=== PATIENT | male | born 1965 | race African-American/Black ===

== ENCOUNTER 2018-07-09 12:09 | Inpatient (IN) ==
--- NOTE | 2018-07-09 14:07 | Diag Imaging Result Doc PS360 ---
EXAM: CHEST-2 VIEWS HISTORY: sob TECHNIQUE: Chest two views COMPARISON: 08/06/2013 FINDINGS: The heart remains markedly enlarged. Central vascular distention. Poor inspiratory effort. No consolidation. Trace right pleural fluid versus pleural thickening. IMPRESSION: Marked cardiomegaly Electronically signed by Cristhian García 07/09/2018 2:05 PM
[2018-07-09] MEDS ORDERED: DUONEB (A & A) INH ONE (14:39)
--- NOTE | 2018-07-09 14:44 | PROVIDER DOCUMENTATION ---
HPI-Respiratory General - General Chief Complaint: Shortness of Breath Stated Complaint: SOB Time Seen by Provider: 07/09/18 14:29 Source: patient, family Allergies/Adverse Reactions: Patient Allergies Allergy/AdvReac Type Severity Reaction Status Date / Time No Known Allergies Allergy Verified 07/09/18 15:00 Home Medications: Home Medication List Medication Instructions Recorded Confirmed Last Taken Type Allopurinol [Zyloprim] 300 mg PO QAM 08/02/15 07/09/18 07/09/18 History Carvedilol 25 mg PO BID 08/02/15 07/09/18 07/09/18 History Digoxin 125 mcg PO QAM 08/02/15 07/09/18 07/09/18 History Simvastatin 20 mg PO QPM 08/02/15 07/09/18 1 Day Ago History ~07/08/18 Warfarin Sodium [Jantoven] 5 mg PO HS 08/02/15 07/09/18 1 Day Ago History ~07/08/18 Furosemide [Lasix] 30 mg PO DAILY 07/09/18 07/09/18 07/09/18 History - History of Present Illness-Resp Nature of Presenting Problem: Pt is 53 yo male, states dyspnea x 2 weeks, getting worse. Denies cp. Denies fever. States he has h/o CHF, and chronic foot wound, with increased swelling in bilat lower ext as well. States he has appt with his doctor, Dr. Martínez on this week. Onset/Duration: reports: other (2 weeks) Timing: reports: still present Modifying Factors: improves with: exertion Associated Symptoms: denies: fever/chills Review of Systems - Adult - REVIEW OF SYSTEMS - ADULT Constitutional: denies: fever Cardiovascular: reports: edema. denies: chest pain Respiratory: reports: dyspnea on exertion, shortness of breath Integumentary: denies: rash All Other Systems: Reviewed and Negative Past History - Adult - PAST MEDICAL HISTORY-ADULT Review of Records: reports: Nursing Assessment Review, Medications Reviewed Major Childhood Illnesses: reports: denies history Physical Exam-General - PHYSICAL EXAM-ADULT Initial Vital Signs Reviewed: Yes - CONSTITUTIONAL General Appearance: alert, mild distress (due to dyspnea) - EYES Eyes: PERRL/EOMI, pink conjunctivae - HEAD, EARS, NOSE, MOUTH & THROAT HENMT: normocephalic/atraumatic, moist mucous membranes - NECK Neck: supple - RESPIRATORY Respiratory: chest non-tender, decreased breath sounds (bilat) - CARDIOVASCULAR Cardiovascular: normal peripheral pulses, regular rate, rhythm - MUSCULOSKELETAL Extremity: swelling (2+ bilat lower ext, chronic L foot wound, just left wound center, dressing intact) - SKIN Integumentary: normal color, normal turgor - PSYCHIATRIC Psych/Mental Status: normal mood/affect, normal thought content, normal thought process, oriented x 3 Progress - PLAN OF CARE/RESULTS Progress/Plan/Lab Results: Vital Signs - 8 hr 07/09/18 12:17 07/09/18 15:23 07/09/18 15:33 Temperature 98.6 F Pulse Rate 59 L 59 L 55 L Respiratory Rate 18 18 20 Blood Pressure 126/87 130/92 O2 Sat by Pulse Oximetry 92 L 96 94 L 07/09/18 16:39 Temperature Pulse Rate 48 L Respiratory Rate 19 Blood Pressure 120/93 O2 Sat by Pulse Oximetry 97 Laboratory Results - last 24 hr 07/09/18 07/09/18 07/09/18 14:37 15:00 15:28 WBC 5.88 RBC 5.53 Hgb 13.3 L Hct 40.2 L MCV 72.7 L MCH 24.1 L MCHC 33.1 RDW Std Deviation 19.5 H Plt Count 269 MPV 11.8 H Immature Gran % (Auto) 0.3 Neut % (Auto) 63.3 Lymph % (Auto) 22.3 Coles % (Auto) 13.3 H Eos % (Auto) 0.3 Baso % (Auto) 0.5 Immature Gran # (Auto) 0.02 Neut # (Auto) 3.72 Lymph # (Auto) 1.31 Coles # (Auto) 0.78 H Eos # (Auto) 0.02 Baso # (Auto) 0.03 PT 13.5 INR 0.98 Sodium Potassium Chloride Carbon Dioxide Anion Gap BUN Creatinine Estimated GFR/1.73 m2 BUN/Creatinine Ratio Glucose Calculated Osmolality Calcium Total Bilirubin AST ALT Alkaline Phosphatase Coo-X-Hbhokouomyt Pept Total Protein Albumin Globulin Albumin/Globulin Ratio Urine Source CLEAN CATCH Urine Color YELLOW Urine Clarity CLEAR Urine pH 5.0 Ur Specific [place] 1.015 Urine Protein 2+(100 mg/dL) A Urine Ketones TRACE Urine Blood NEGATIVE Urine Nitrite NEGATIVE Urine Bilirubin NEGATIVE Urine Urobilinogen 4 Urine Microscopic RBC <10 Urine WBC TRACE A Urine Microscopic WBC <10 Ur Epithelial Cells <10 Urine Crystals NONE SEEN Small Round Cells TRANSITIONAL PRESENT Urine Bacteria NEGATIVE Urine Casts NONE SEEN Urine Yeast NONE SEEN Urine Glucose NEGATIVE 07/09/18 07/09/18 15:28 15:28 WBC RBC Hgb Hct MCV MCH MCHC RDW Std Deviation Plt Count MPV Immature Gran % (Auto) Neut % (Auto) Lymph % (Auto) Col[place] % (Auto) Eos % (Auto) Baso % (Auto) Immature Gran # (Auto) Neut # (Auto) Lymph # (Auto) Coles # (Auto) Eos # (Auto) Baso # (Auto) PT INR Sodium 134 L Potassium 4.0 Chloride 105 Carbon Dioxide 19 L Anion Gap 10 BUN 28 H Creatinine 0.8 Estimated GFR/1.73 m2 > 60 BUN/Creatinine Ratio 35 Glucose 118 H Calculated Osmolality 275 Calcium 7.9 L Total Bilirubin 0.30 AST 19 ALT 18 Alkaline Phosphatase 81 Cju-L-Vwwtnxvpydi Pept 744 H Total Protein 5.9 L Albumin 3.3 L Globulin 3.0 Albumin/Globulin Ratio 1.0 Urine Source Urine Color Urine Clarity Urine pH Ur Specific [place] Urine Protein Urine Ketones Urine Blood Urine Nitrite Urine Bilirubin Urine Urobilinogen Urine Microscopic RBC Urine WBC Urine Microscopic WBC Ur Epithelial Cells Urine Crystals Small Round Cells Urine Bacteria Urine Casts Urine Yeast Urine Glucose Orders Category Date Time Status Cardiac Monitoring DIRECTED Care 07/09/18 14:31 Active Oxygen Therapy- ED Nursing DIRECTED Care 07/09/18 14:31 Active CHEST-2 VIEWS [RAD] Stat Exams 07/09/18 13:52 Completed CTA [CT ANGIOGRM PULMONARY ARTERIES] [CT] Stat Exams 07/09/18 14:38 Completed CBC WITH ELECTRONIC DIFF [HEME] Stat Lab 07/09/18 15:00 Completed COMPREHENSIVE METABOLIC PANEL [CHEM] Stat Lab 07/09/18 15:28 Completed PRO B-NATRIURETIC PEPTIDE Stat Lab 07/09/18 15:28 Completed PROTIME WITH INR [COAG] Stat Lab 07/09/18 15:[address] W/POSS RFLX CULT [URINALYSIS] Stat Lab 07/09/18 14:37 Completed URINE CULTURE [RM] Routine Lab 07/09/18 15:04 Ordered Albuterol 2.5MG/Ipratrop 0.5MG [Duoneb (A & A)] Med 07/09/18 14:39 Discontinued 3 ml INH NOW ONE Furosemide [Lasix] Med 07/09/18 18:19 Discontinued 60 mg IV NOW ONE Aerosol Treatments Routine Oth 07/09/18 14:39 Completed Aerosol Treatments Stat Oth 07/09/18 14:39 Completed CP/SOB/Palp >45 yrs of Age Stat Oth 07/09/18 14:28 Ordered EKG [EKG] Stat Ther 07/09/18 14:31 Draft Result Diagrams: 07/09/18 15:00 07/09/18 15:28 - REASSESSMENT Reassessment #1 Time Reassessed: 17:29 (explained results and need for admission to pt and family member) Reassessment #2 Time Reassessed: 18:33 (Dr Alas in ER, discussed pt with him. Dr Alas at bedside to assess pt) - CT/MRI 1 CT Study: Angiogram Impression: Abnormal (The heart remains markedly enlarged. No left pleural effusion. Tiny right pleural effusion. There is vascular distention. Suboptimal opacification of the pulmonary arteries, but no large filling defects. There are small mediastinal and hilar lymph nodes. No consolidation. No bronchiectasis. Limited images through the upper abdomen reveal marked distention to the inferior vena cava as well as a small amount of ascites. IMPRESSION: Marked cardiomegaly with pulmonary edema. No pulmonary emboli. This exam was performed using automated exposure control, adjustment of mA or kV according to patient size, and/or use of iterative reconstruction technique. Electronically signed by Cristhian García 07/09/2018 5:10 PM) - CONSULTS/PCP/HOSPITALIST Notification #1 *Consult/PCP/Hospitalist*: hospitalistDr Alas Time Discussed: 18:33 Consult Disposition: Admit - CHANGE OF SHIFT REPORT (ED Provider) Report Given and Care Transferred to:: [id number]--care transferred to Lakisha Ascencio NP. Time of Transfer: 16:11 Departure - Departure Date of Disposition Decision: 07/09/18 Time of Disposition Decision: 18:56 DIAGNOSIS: SOB (shortness of breath) Pulmonary edema Qualifiers: Chronicity: acute Qualified Code(s): J81.0 - Acute pulmonary edema Disposition: ADMITTED INPATIENT 09 Certified Medical Emergency: Emergent Condition: Fair Referrals and Follow-Ups: Elmer Martínez MD [Primary Care Provider] - - Critical Care Note This patient required my direct & personal management of CC.: No Attestation - Physician/ PABLO Attestation Patient care was provided by Advanced Practice Provider:: Yes Advanced Practice Provider:: Lakisha Ascencio Advanced Practice Provider documentation review:: The Mid-level provider documentation, treatment plan and medical decision making was reviewed by the physician who agrees with all treatment and medical decision making by the MLP. The physician spent face to face time with patient:: No Advanced Practice Provider documentation review:: Supervising physician onsite and consulted in the evaluation and care of this patient. The physician did not have a face to face encounter with the patient.
[2018-07-09 15:02] LABS: BILIRUBIN URINE NEGATIVE (NEGATIVE); BLOOD URINE NEGATIVE (NEGATIVE); CLARITY CLEAR (CLEAR); COLOR YELLOW; GLUCOSE URINE NEGATIVE (NEGATIVE); KETONE URINE TRACE mg/dL (NEGATIVE); LEUKOCYTES URINE TRACE (NEGATIVE); NITRITE URINE NEGATIVE (NEGATIVE); PROTEIN URINE 2+(100 mg/dL) mg/dL (NEGATIVE); SP GRAVITY URINE 1.015; URINE SOURCE CLEAN CATCH; UROBILINOGEN URINE 4 mg/dL
[2018-07-09 15:04] LABS: URINE BACTERIA NEGATIVE /HFP; URINE CAST NONE SEEN /LPF; URINE CRYSTAL NONE SEEN /HPF; URINE EPITHELIAL CELLS <10 /HPF (<10); URINE RBC <10 /HPF (<10); URINE SMALL ROUND CELLS TRANSITIONAL PRESENT; URINE WBC <10 /HPF (<10); URINE YEAST NONE SEEN /HPF
[2018-07-09 15:10] LABS: BASO# 0.03 X1000 (0.0-0.2); BASO% 0.5 % (0.0-0.8); EOS# 0.02 X1000 (0.0-0.7); EOS% 0.3 % (0.0-10.0); HEMATOCRIT 40.2 % (42.0-52.0); HEMOGLOBIN 13.3 g/dL (14.0-18.0); IMM GRAN# 0.02 X1000 (0.0-0.04); IMM GRAN% 0.3 % (0.0-0.5); LYMPH# 1.31 X1000 (1.2-3.4); LYMPH% 22.3 % (20.5-51.1); MCH 24.1 PG (27-31); MCHC 33.1 g/dL (33-37); MCV 72.7 FL (81-99); MONO# 0.78 X1000 (0.11-0.59); MONO% 13.3 % (1.7-9.3); MPV 11.8 FL (7.4-10.4); NEUT# 3.72 X1000 (1.4-6.5); NEUT% 63.3 % (42.2-75.2); PLT 269 X1000 (130-400); RBC 5.53 XMIL (4.7-6.1); RDW 19.5 % (11.5-14.5); WBC 5.88 X1000 (4.8-10.8)
[2018-07-09 16:03] LABS: INR 0.98; PROTIME 13.5 Seconds (11.0-16.0)
[2018-07-09 16:17] LABS: AGAP 10; ALBUMIN 3.3 g/dL (3.5-5.0); ALKALINE PHOSPHATASE 81 U/L (32-122); BUN 28 mg/dL (8-22); CALCIUM 7.9 mg/dL (8.8-10.2); CHLORIDE 105 mmol/L (98-107); COSMO 275; CREATININE 0.8 mg/dL (0.7-1.2); ESTIMATED GFR > 60; GLUCOSE 118 mg/dL (70-104); GOT 19 U/L (10-34); GPT 18 U/L (10-44); SODIUM 134 mmol/L (136-145); TCO2 19 mmol/L (25-35); TOTAL PROTEIN 5.9 g/dL (6.3-8.3)
--- NOTE | 2018-07-09 17:12 | Diag Imaging Result Doc PS360 ---
EXAM: CT ANGIOGRM PULMONARY ARTERIES HISTORY: sob TECHNIQUE: CT chest with intravenous contrast. Pulmonary two protocol with MIP images. COMPARISON: None. FINDINGS: The heart remains markedly enlarged. No left pleural effusion. Tiny right pleural effusion. There is vascular distention. Suboptimal opacification of the pulmonary arteries, but no large filling defects. There are small mediastinal and hilar lymph nodes. No consolidation. No bronchiectasis. Limited images through the upper abdomen reveal marked distention to the inferior vena cava as well as a small amount of ascites. IMPRESSION: Marked cardiomegaly with pulmonary edema. No pulmonary emboli. This exam was performed using automated exposure control, adjustment of mA or kV according to patient size, and/or use of iterative reconstruction technique. Electronically signed by Cristhian García 07/09/2018 5:10 PM
--- NOTE | 2018-07-09 17:19 | EKG Report ---
Test Performed on : 07/09/2018 3:22:07 PM Test Reason : sob Blood Pressure : / mmHG Vent. Rate : 056 BPM Atrial Rate : 061 BPM P-R Int : 000 ms QRS Dur : 090 ms QT Int : 428 ms P-R-T Axes : 000 -52 133 degrees QTc Int : 413 ms Atrial fibrillation. with slow ventricular response. with a competing junctional pacemaker. with merritt ature ventricular or aberrantly conducted complexes. Left axis deviation ST & T wave abnormality, consider lateral ischemia Abnormal ECG When compared with ECG of 10-FEB-2014 11:59, QRS duration has decreased T wave inversion no longer evident in Inferior leads T wave inversion less evident in Lateral leads Unconfirmed Result
--- NOTE | 2018-07-09 18:02 | ED EKG INTERP ---
This chart was entered by Mikaela Spann Scribe, acting as scribe for Adela Dickey MD. EKG Interpretation - EKG Time of EKG reading by physician:: 15:22 EKG Read and Signed by:: Adela Dickey EKG Interpretation (*Must complete 3 of following elements*): Abnormal (rhythm - atrial fibrillation with slow ventricular repsonse with a competing junctional pacemaker with premature ventricular or aberrantly conducted complexes.) Rate: 56 Comments: left axis deviation; ST & T wave abnormality, consider lateral ischemia Attestation - Physician/ PABLO Attestation Patient care was provided by Advanced Practice Provider:: Yes Advanced Practice Provider:: Mariaa Melo Advanced Practice Provider documentation review:: The Mid-level provider documentation, treatment plan and medical decision making was reviewed by the physician who agrees with all treatment and medical decision making by the MLP. The physician spent face to face time with patient:: No Advanced Practice Provider documentation review:: Supervising physician onsite and consulted in the evaluation and care of this patient. The physician did not have a face to face encounter with the patient. This chart was documented by the indicated scribe, (Mikaela Spann Scribe) and accurately reflects the services I performed and decisions made by me, Adela Dickey MD, as attested by the provider's signature.
[2018-07-09] MEDS ORDERED: LASIX IV ONE (18:19)
[2018-07-09] MEDS: LOVENOX SUBQ SCH (19:15)
[2018-07-09] MEDS ORDERED: ZOFRAN IV PRN (19:16)
[2018-07-09] MEDS ORDERED: TYLENOL PO PRN (19:16)
[2018-07-09] MEDS: LASIX IV SCH (19:22)
[2018-07-09] MEDS ORDERED: COUMADIN PO SCH (21:00)
[2018-07-09] MEDS: COREG PO SCH (21:49)
[2018-07-09] MEDS: ZOCOR PO SCH (21:49)
[2018-07-10 00:49] LABS: ALBUMIN 3.7 g/dL (3.5-5.0); CALCIUM 9.4 mg/dL (8.8-10.2); CREATININE 1.5 mg/dL (0.7-1.2); POTASSIUM 4.6 mmol/L (3.5-5.1); TOTAL BILIRUBIN 1.3 mg/dL (0.20-1.00); TOTAL PROTEIN 7.3 g/dL (6.3-8.3)
--- NOTE | 2018-07-10 01:01 | EKG Report ---
Test Performed on : 07/09/2018 11:54:41 PM Test Reason : STAT Blood Pressure : / mmHG Vent. Rate : 052 BPM Atrial Rate : 326 BPM P-R Int : 000 ms QRS Dur : 104 ms QT Int : 428 ms P-R-T Axes : 000 -61 129 degrees QTc Int : 398 ms Atrial fibrillation. with slow ventricular response. with premature ventricular or aberrantly conduct ed complexes. Left axis deviation ST & T wave abnormality, consider lateral ischemia Abnormal ECG When compared with ECG of 09-JUL-2018 15:22, (Unconfirmed) No significant change was found Confirmed by Frankie Patterson MD ([id number]) on 08/04/2018 9:57:37 AM
--- NOTE | 2018-07-10 03:56 | HISTORY AND PHYSICAL ---
CHIEF COMPLAINT: Shortness of breath. HISTORY OF PRESENT ILLNESS: This is a 53-year-old male who presented to the emergency department with shortness of breath, coughing, and congestion. He denies any chest pains, fevers, or chills. States he has a history of CHF. He has a chronic foot wound for which he was actually seen [facility]. States he has been sick for several weeks but since he was going to the [facility], he decided to come on to the ER. ALLERGIES: No known drug allergies. MEDICATIONS: Allopurinol 300, carvedilol 25 twice a day, digoxin 125, simvastatin 20, Coumadin 5, Lasix 30. REVIEW OF SYSTEMS: The patient unfortunately is an extremely poor historian. He does not recall whether he has ever been told he has congestive heart failure, atrial fibrillation, or coronary artery disease, or any other question that I could ask. He denies any current chest pains. Denies any fevers or chills. Denies any GI or issues. PAST MEDICAL HISTORY: He has a chronic foot wound, he has congestive heart failure, history of atrial fibrillation, high cholesterol. It appears that he may have a history of BPH as well. FAMILY HISTORY: Noncontributory. SOCIAL HISTORY: Patient lives at home. He does not smoke anymore. Does not drink. PHYSICAL EXAMINATION: VITAL SIGNS: Temperature 98, pulse 59, respiratory rate 18, BP 126/87, saturation of 92% on room air. GENERAL: The patient is awake and alert. He is currently in no respiratory distress. He is lying in the bed. HEENT: Normocephalic. NECK: Supple. CARDIOVASCULAR: Regular rate. CHEST: Positive rhonchi, crackles in the bases. No wheezing. ABDOMEN: Soft and nondistended. EXTREMITIES: Moves all extremities. He has 2+ edema in the bilateral lower extremities. His right foot is currently bandaged, clean, dry, and intact. ASSESSMENT: 1. Hyponatremia. 2. Congestive heart failure with exacerbation. 3. Atrial fibrillation, currently rate controlled. 4. High cholesterol. PLAN: We will continue the patient in the hospital. Continues his home medications. Follow his INRs. Place him on Lasix 40 IV twice daily. We will get an echocardiogram in the a.m. and we will follow. cc: Martínez Marcial MD
[2018-07-10] MEDS ORDERED: NORCO-7.5 PO PRN (06:36)
[2018-07-10 07:17] LABS: HEMOGLOBIN 12.3 g/dL (14.0-18.0); MCH 23.8 PG (27-31); MCHC 32.4 g/dL (33-37); MCV 73.5 FL (81-99); MPV 11.1 FL (7.4-10.4); RBC 5.17 XMIL (4.7-6.1); RDW 19.1 % (11.5-14.5); WBC 5.36 X1000 (4.8-10.8)
[2018-07-10 07:47] LABS: ALBUMIN 3.5 g/dL (3.5-5.0); CALCIUM 9.4 mg/dL (8.8-10.2); CREATININE 1.4 mg/dL (0.7-1.2); MAGNESIUM 2.1 mg/dL (1.5-2.7); POTASSIUM 4.6 mmol/L (3.5-5.1); TOTAL BILIRUBIN 1.2 mg/dL (0.20-1.00); TOTAL PROTEIN 6.9 g/dL (6.3-8.3)
[2018-07-10] MEDS ORDERED: LANOXIN PO SCH (09:00)
[2018-07-10] MEDS ORDERED: ZYLOPRIM PO SCH (09:00)
[2018-07-10] MEDS ORDERED: FLOMAX PO SCH (09:00)
[2018-07-10 09:09] LABS: INR 3.18; PROTIME 34.1 Seconds (11.0-16.0)
[2018-07-10] MEDS: COREG PO SCH (10:02)
[2018-07-10] MEDS: LASIX IV SCH ×2 (10:03→20:20)
[2018-07-10] MEDS ORDERED: ZAROXOLYN PO ONE (18:45)
--- NOTE | 2018-07-10 19:58 | ECHO REPORT ---
ORDER DATE: 07/10/2018 INDICATION: CHF, dyspnea, atrial fibrillation. M-MODE MEASUREMENTS: Left ventricle end diastole: 5.4. Left ventricle end systole: 4.6. Posterior wall: 0.8. Interventricular septum: 1.2. Left atrium: 4.0. Aortic root: 4.0. SUMMARY OF 2-DIMENSIONAL IMAGIN. The left ventricle is probably mildly enlarged. The global ejection fraction of the left ventricle is probably on the order of 30% to 35%. There is abnormal motion of the septum due to a markedly enlarged right ventricle with pulmonary hypertension. There is flattening of the septum. 2. The right ventricle is significantly enlarged, and it shows moderately impaired systolic function. The tricuspid valve shows a moderate to severe degree of regurgitation. The right atrium is massively dilated. The absolute volume of the right atrium is about 680 mL. 3. The inferior vena cava is markedly dilated, measuring up to 5 cm in cross- sectional diameter. 4. There is evidence of ascites. 5. Pulmonary systolic pressure is greater than 100 mmHg. It is hard to really estimate. 6. The aortic valve is bicuspid. It shows no regurgitation. There is no stenosis. 7. The pulmonic valve shows some moderate degree of regurgitation. Pulmonary diastolic pressure is probably on the order of 31 mmHg. 8. The mitral valve shows a mild to moderate degree of regurgitation. 9. The patient is in atrial fibrillation. 10.Pulsed wave Doppler of mitral inflow shows a single filling wave. 11.Diastolic function cannot be estimated in this case. 12.There is no pericardial effusion. A pleural effusion and ascites appear to be present. SUMMARY: This study shows: 1. Markedly dilated right-sided chambers with massive enlargement of the right atrium, significant enlargement of the right ventricle, severe pulmonary hypertension greater than 100 mmHg systolic and greater than 30 mmHg diastolic. 2. Bicuspid aortic valve without stenosis or regurgitation. 3. Impaired systolic function of the left ventricle. Ejection fraction of 30% to 35% with abnormal motion of the septum due to right ventricular pressure overload. 4. No evidence of masses. No thrombus. Clinical correlation recommended. cc: MD Whitley Ribeiro CRNP MTDD
[2018-07-10] MEDS: ZOCOR PO SCH (20:19)
[2018-07-10] MEDS: LOVENOX SUBQ SCH (20:22)
[2018-07-10] MEDS ORDERED: COREG PO SCH (21:00)
[2018-07-10] MEDS ORDERED: TYLENOL PO PRN (21:45)
[2018-07-10] MEDS ORDERED: ZOFRAN IV PRN (21:46)
--- NOTE | 2018-07-11 00:44 | CONSULTATION ---
DATE OF CONSULTATION: 07/10/2018 IMPRESSION: 1. Acute on chronic systolic heart failure, biventricular with significant right-sided congestive heart failure manifest. 2. Severe nonischemic cardiomyopathy. 3. Obstructive sleep apnea. Patient not using CPAP. 4. Longstanding hypertension. 5. Hyperlipidemia. 6. Atrial fibrillation, chronic. RECOMMENDATIONS: 1. Agree with diuresis. Increase Lasix to 60 mg IV q.12. Give single dose of metolazone this evening to see of diuresis can be initiated. 2. Given tendency for bradycardia, reduce carvedilol. 3. As patient improves and if blood pressure allows and renal function allows, consider addition of angiotensin receptor blocking agent versus hydralazine/isosorbide. HISTORY: This 53-year-old male with past history of severe nonischemic cardiomyopathy, longstanding hypertension, atrial fibrillation, hyperlipidemia and gout was admitted to emergency room for further management of acute on chronic systolic heart failure. He relates a 1 month history of progressive increase in dyspnea symptoms as well as some swelling. Symptoms have progressively worsened over the last several days prompting him to come in for evaluation. He denies any chest pain. He reports compliance with sodium restriction. He has been started on intravenous Lasix q.12 hours but has not diuresed very much at this point. He does report that his oral Lasix seemed to have less effect on him of late. PAST MEDICAL HISTORY: 1. Severe nonischemic cardiomyopathy with left ejection fraction reported less than 20%. 2. Longstanding hypertension which has been somewhat difficult to control in the past. 3. Chronic atrial fibrillation. 4. Hyperlipidemia. 5. Gout. 6. Tendency for lower extremity edema and nonhealing ulcers. Patient relates that this has kept him from getting a defibrillator. It is desired that his wounds heal before he can have implantable defibrillator. ALLERGIES: He has no known drug allergies. MEDICATIONS PRIOR TO ADMISSION: As listed. SOCIAL HISTORY: The patient does not smoke. He drinks very infrequent alcoholic beverage. FAMILY HISTORY: Positive for hypertension and congestive heart failure. Negative for premature coronary disease. REVIEW OF SYSTEMS: Pulmonary: Noteworthy for progressive dyspnea. Gastrointestinal: Negative. Constitutional: Negative. Remainder of review of systems negative/noncontributory with 14 total systems reviewed. PHYSICAL EXAMINATION: General: This is a pleasant, middle-aged -[place] male in no distress, on supplemental oxygen per nasal cannula. Vital signs: Blood pressure 112/87, heart rate 54 with ECG monitor showing atrial fibrillation. Oxygen saturation 97%. HEENT: Extraocular movements intact. Mucous membranes were moist. Neck: Supple with prominent jugular venous distention suggesting significantly elevated central venous pressure. Chest: Auscultation of chest reveals a few inspiratory crackles in the bases bilaterally. Cardiac: Exam reveals an irregular rate and rhythm with a grade 2/6 holosystolic murmur at the left ventricular apex. Gallop could not be appreciated. Abdomen: Somewhat distended. Bowel sounds audible. Extremities: Demonstrate mild pretibial edema. Neurologic: Exam reveals him to be alert and fully oriented. Speech is fluent. He moves all 4 extremities equally well. Skin: Warm and dry. Psychiatric: Exam reveals mood to be appropriate. EKG: Twelve-lead EKG demonstrates atrial fibrillation with slow ventricular rate response and occasional premature ventricular or aberrantly conducted complex, left axis deviation, and nonspecific ST and T-wave abnormality. LABORATORY DATA: Includes a white blood cell count of 5.36, hematocrit 38.0, hemoglobin 12.3, MCV 73.5. Initial INR 0.98 with a ProTime of 13.5. Followup INR after 1 dose of Coumadin 5 mg 3.18 with a ProTime of 34.1. Sodium 142, potassium 4.6, chloride 100, carbon dioxide 29, BUN 32, creatinine 1.4, magnesium 2.1. Total bilirubin 1.2. Troponin 0.029. Pro B-natriuretic peptide level 744. Albumin 3.5. TSH 4.98. Chest x-ray demonstrates prominent cardiomegaly. cc: Magnus Lopez MD
--- NOTE | 2018-07-11 00:48 | PROGRESS NOTE ---
DATE: 07/10/2018 SUBJECTIVE: Patient this morning has no new complaints. States he does not feel well. States he is still short of breath and fatigued. The nurses note that he had several episodes of dysrhythmias yesterday including 15 beats or so of the ventricular tachycardia. PHYSICAL EXAMINATION: Vital Signs: Temperature 97.4 degrees, pulse 61, respiratory 22, BP 126/88. General: Patient is awake, alert. He is currently in no respiratory distress. HEENT: Normocephalic. Neck: Supple. CARDIOVASCULAR: Regular rate. Chest: Positive rhonchi. Positive crackles. No current wheezing. Good air movement. Abdomen: Soft, nondistended, nontender. Extremities: Moves all extremities. He has 2+ edema in his lower extremities. His right foot is currently bandaged. DIAGNOSTIC STUDIES: Echo demonstrates an ejection fraction of 30 to 35 percent with abnormal motion and markedly dilated right-sided chambers with massive enlargement of the right atrium. PLAN: We have consulted Cardiology. We will attempt to transfer him to [facility] for close followup. cc: Martínez Marcial MD
[2018-07-11 05:16] LABS: HEMATOCRIT 38.7 % (42.0-52.0); HEMOGLOBIN 12.5 g/dL (14.0-18.0); MCHC 32.3 g/dL (33-37); MCV 74.3 FL (81-99); RBC 5.21 XMIL (4.7-6.1); WBC 4.87 X1000 (4.8-10.8)
[2018-07-11 05:41] LABS: AGAP 12; BUN 34 mg/dL (8-22); CALCIUM 9.4 mg/dL (8.8-10.2); CHLORIDE 99 mmol/L (98-107); COSMO 287; CREATININE 1.3 mg/dL (0.7-1.2); ESTIMATED GFR > 60; GLUCOSE 96 mg/dL (70-104); POTASSIUM 4.5 mmol/L (3.5-5.1); SODIUM 140 mmol/L (136-145); TCO2 29 mmol/L (25-35)
[2018-07-11 08:21] LABS: INR 3.33; PROTIME 36.1 Seconds (11.0-16.0)
[2018-07-11] MEDS: LASIX IV SCH ×2 (08:54→16:04)
--- NOTE | 2018-07-11 12:51 | Diag Imaging Result Doc PS360 ---
EXAM: US ABDOMEN-COMPLETE 07/11/2018 HISTORY: ASCITES, ABD DISTENTION TECHNIQUE: Abdominal ultrasound COMMENT: There is a small amount of free fluid around the liver. The inferior vena cava is distended. The visualized portion of the aorta is within normal limits. The head of the pancreas is unremarkable in appearance remainder is obscured. There is antegrade flow in the portal vein. The gallbladder is somewhat contracted and thickened in appearance without evidence of stones. There is no sonographic Hickman sign. The common bile duct is not distended measuring less than 6 mm. The kidneys are without evidence of hydronephrosis or mass. The spleen is not enlarged. IMPRESSION: Ascites. Dilatation of the inferior vena cava and hepatic veins. This may be due to passive congestion due to heart failure. The possibility of chronic acalculous cholecystitis cannot be excluded. Electronically signed by Darien Purvis 07/11/2018 12:49 PM
[2018-07-11] MEDS: COREG PO SCH ×2 (13:41→20:20)
[2018-07-11] MEDS: LANOXIN PO SCH (13:41)
[2018-07-11] MEDS: FLOMAX PO SCH (13:44)
[2018-07-11] MEDS: ZYLOPRIM PO SCH (13:44)
--- NOTE | 2018-07-11 14:31 | PROGRESS NOTE ---
DATE: 07/11/2018 INTERVAL HISTORY: Patient still with dyspnea with minimal exertion. Little improved from previous. Lasix increased last night but still with less urine output than we would prefer. No new complaints. No acute events overnight. REVIEW OF SYSTEMS: A 12 point review of systems negative except as per interval history. LABS: White count 4.8, hemoglobin 12.5, hematocrit 38.7, platelets 217,000. INR 3.3. Sodium 140, potassium 4.5, BUN 34, creatinine 1.3. IMAGING: Abdominal ultrasound 07/11/2018 showing distended inferior vena cava and hepatic veins. Normal common bile duct. Ascites, favored to represent passive congestion due to congestive heart failure. VITAL SIGNS: T-max 98.2, pulse 64, respirations 19, blood pressure 129/71, O2 saturation 100% on 3 L by nasal cannula. PHYSICAL EXAMINATION: General: No acute distress. Vital signs: As above. HEENT: Normocephalic, atraumatic. Moist mucous membranes. No cervical adenopathy. Cardiovascular: Irregular rhythm with normal rate. No rubs or gallops. Abdomen: Somewhat distended but nontender. Bowel sounds positive. Extremities: Peripheral pulses decreased but intact. Left lower extremity heavily bandaged. Bandage clean, dry, and intact. There is 2+ pitting edema in both lower extremities. Neurologic: Cranial nerves 2-12 grossly intact. No focal motor or sensory deficits. Psychiatric: Normal mood and affect. Awake, alert, and oriented x3. Skin: No new rashes or lesions identified. ASSESSMENT AND PLAN: 1. Acute on chronic systolic congestive heart failure. Initially placed on Lasix 40 b.i.d. but had little diuresis with this. Lasix increased to 60 last night. Monitoring for response but may have to increase further as he appears to still be not having as much urine output as we would prefer. Cardiology is following. They have decreased his Coreg given some mild bradycardia earlier and added a single dose of metolazone to attempt to improve diuresis. Continue to monitor closely. 2. Atrial fibrillation. The patient remains rate controlled. On Coumadin for anticoagulation but held last night due to repaid increase in INR. Slightly higher today, from 3.18 to 3.33, so we will again hold warfarin and if it trends down tomorrow will likely restart at a lower dose. Currently 5, so may start 2 mg tomorrow. 3. Hypertension. Good control currently on home Coreg. Continue to monitor. 4. Benign prostatic hypertrophy. The patient with some mild urinary retention symptoms. Started on Flomax. Will monitor. 5. Likely chronic kidney disease 3. Patient with creatinine which is likely at or near baseline. At least CKD 3, may be in to CKD 4. Continue to monitor kidney function in the setting of aggressive diuresis. 6. Hyperlipidemia. Continue statin. 7. Gout. Continue home allopurinol. Monitor kidney function as dose may have to be adjusted. 8. Deep vein thrombosis prophylaxis. Coumadin.
[2018-07-11] MEDS: NORCO-7.5 PO PRN (15:07)
[2018-07-11] MEDS ORDERED: ZAROXOLYN PO ONE (15:47)
--- NOTE | 2018-07-11 19:50 | PROGRESS NOTE ---
DATE: 07/11/2018 SUBJECTIVE: Patient continues without shortness of breath or chest discomfort on supplemental oxygen per nasal cannula. He has diuresed a limited amount. OBJECTIVE: Vital Signs: Blood pressure 129/71, heart rate 64 and irregular, oxygen saturation 100% on nasal cannula oxygen at 3 L/minute. Neck: Jugular venous distention is significant consistent with elevated central venous pressure. Chest: Clear to auscultation bilaterally. Cardiac: Reveals an irregular rate and rhythm without appreciable murmur or gallop. Extremities: Demonstrate mild pretibial edema. LABORATORY DATA: Includes a white blood cell count of 4.87, hematocrit 38.7, hemoglobin 12.5, platelet count 217,000. Pro time 36.1, INR 3.33. Sodium 140, potassium 4.5, chloride 99, carbon dioxide 29, BUN 34, creatinine 1.3, glucose 96. IMPRESSION: 1. Acute on chronic systolic heart failure, biventricular with significant right-sided congestive heart failure. 2. Severe nonischemic cardiomyopathy. 3. Obstructive sleep apnea. Patient not using CPAP. 4. Longstanding hypertension. 5. Hyperlipidemia. 6. Chronic atrial fibrillation. RECOMMENDATIONS: 1. Continue IV Lasix 60 mg IV q.12. 2. Give additional dose of metolazone 5 mg p.o. today. 3. If patient diureses, consider addition of angiotensin receptor blocking agent. cc: Magnus Lopez MD
[2018-07-11] MEDS: ZOCOR PO SCH (20:20)
[2018-07-11] MEDS ORDERED: LOVENOX SUBQ SCH (21:00)
[2018-07-12] MEDS: LASIX IV SCH ×2 (03:30→16:10)
[2018-07-12 05:45] LABS: INR 3.08
[2018-07-12] MEDS: ZYLOPRIM PO SCH (08:09)
[2018-07-12] MEDS: LANOXIN PO SCH (08:09)
[2018-07-12] MEDS: FLOMAX PO SCH (08:09)
[2018-07-12] MEDS: COREG PO SCH ×2 (08:09→20:34)
[2018-07-12 08:38] LABS: BASO# 0.02 X1000 (0.0-0.2); BASO% 0.4 % (0.0-0.8); EOS# 0.04 X1000 (0.0-0.7); EOS% 0.9 % (0.0-10.0); HEMATOCRIT 39.7 % (42.0-52.0); HEMOGLOBIN 12.9 g/dL (14.0-18.0); LYMPH# 0.99 X1000 (1.2-3.4); LYMPH% 21.3 % (20.5-51.1); MCHC 32.5 g/dL (33-37); MCV 73.9 FL (81-99); MONO# 0.53 X1000 (0.11-0.59); MONO% 11.4 % (1.7-9.3); MPV 10.6 FL (7.4-10.4); NEUT# 3.07 X1000 (1.4-6.5); PLT 229 X1000 (130-400); RBC 5.37 XMIL (4.7-6.1); RDW 18.9 % (11.5-14.5); WBC 4.65 X1000 (4.8-10.8)
[2018-07-12 08:53] LABS: LYMPHS 16 % (21-51); MONO 2 % (1-9); SEGS 80 % (42-75)
[2018-07-12 08:55] LABS: CALCIUM 9.3 mg/dL (8.8-10.2); CREATININE 1.5 mg/dL (0.7-1.2); POTASSIUM 4.2 mmol/L (3.5-5.1)
[2018-07-12] MEDS ORDERED: ZAROXOLYN PO ONE (13:03)
--- NOTE | 2018-07-12 13:31 | PROGRESS NOTE ---
DATE: 07/12/2018 SUBJECTIVE: Patient continues without shortness of breath on supplemental oxygen per nasal cannula. He has had no chest pain. OBJECTIVE: Blood pressure 105/71, heart rate 50, oxygen saturation 100% on nasal cannula oxygen at 3 L/minute. Jugular venous distention remains consistent with significantly elevated central venous pressure. Chest is clear to auscultation bilaterally. Cardiac exam reveals an irregular rate and rhythm without appreciable murmur or gallop. Extremities demonstrate 1+ pretibial edema. LABORATORY DATA: White blood cell count of 4.65, hematocrit 39.7, hemoglobin 12.9, platelet count 229,000. Sodium 142, potassium 4.2, chloride 96, carbon dioxide 32. BUN 37, creatinine 1.5, glucose 91. ProTime 34.0. INR 3.08. IMPRESSION: 1. [id number] systolic heart failure which is biventricular but with significant right- sided congestive heart failure component. 2. Severe nonischemic cardiomyopathy. 3. Obstructive sleep apnea. 4. Hypertension, long standing. 5. Hyperlipidemia. 6. Chronic atrial fibrillation. RECOMMENDATIONS: 1. Continue IV Lasix at current rate. 2. Give additional dose of metolazone. 3. Consider addition of low-dose losartan as patient diuresis. cc: Magnus Lopez MD
[2018-07-12] MEDS: NORCO-7.5 PO PRN (14:54)
[2018-07-12] MEDS: ISORDIL PO SCH ×2 (14:54→20:33)
[2018-07-12] MEDS: APRESOLINE PO SCH ×2 (14:56→20:33)
--- NOTE | 2018-07-12 15:02 | PROGRESS NOTE ---
DATE: 07/12/2018 INTERVAL HISTORY: The patient is still with some dyspnea and increased O2 requirements, but improving from previous. With an increase in Lasix and addition of metolazone dose yesterday, we did finally get reasonable diuresis with the patient almost 1 liter negative this morning. No new complaints. No acute events overnight. REVIEW OF SYSTEMS: Twelve point review of systems negative for past or interval history LABS: Hemoglobin 12.9, hematocrit 39.7, platelets 229. INR 3.08. PT 34. BUN 37, creatinine 1.5, potassium 4.2, glucose 91. IMAGING: Abdominal ultrasound, showing a small amount of ascites and dilation of the inferior vena cava and hepatic vein. Favored to represent passive congestion or a-flutter because of CHF. PHYSICAL EXAMINATION: Vital Signs: T-max 98.2, pulse 75, respirations 18, blood pressure 105/71, O2 saturations 100% on 3 liters by nasal cannula. General: No acute distress. Vitals as above. HEENT: Normocephalic, atraumatic. Moist mucous membranes. Neck: No cervical adenopathy. Cardiovascular: Irregular rhythm with normal rate. No murmurs, rubs or gallops. Abdomen: Slightly distended, but nontender. Bowel sounds positive. Extremities: Peripheral pulses decreased, but intact. Left lower extremity remains heavily bandaged. Bandage clean, dry and intact. There is 2+ pitting edema in both lower extremities with some chronic venous stasis changes. Neurologic: Cranial nerves 2 through 12 grossly intact to focal motor and sensory deficit. Psychiatric: Normal mood and affect. Awake, alert and oriented x3. Skin: No new rashes or lesions identified. ASSESSMENT AND PLAN: 1. Acute on chronic systolic congestive heart failure. Diuresis improved with increase in Lasix to 60 b.i.d. and dose of metolazone given yesterday. The patient's symptoms somewhat improved and oxygenation slightly better. Additional dose of metolazone today and will continue to monitor. Cardiology following. Coreg decreased given some mild bradycardia. Still with occasional mild drops in heart rate, but the patient appears to be asymptomatic during these episodes. Continue to monitor. If the patient again diuresis well and is able to be weaned off oxygen, then may be able to discharge tomorrow. Once patient on stable dose of diuretic, then we will likely add SONNY inhibitor if blood pressure permits. 2. Atrial fibrillation. The patient remains rate controlled. On Coumadin for anticoagulation, but held currently because of slightly supratherapeutic INR. Remains slightly elevated today at 3.08. When the Coumadin is restarted, we will likely restart it at a significantly lower dose likely 1 to 2 mg per day. 3. Hypertension, reasonable control. Currently with Coreg, isosorbide, Lasix. 4. Benign prostatic hyperplasia, improved symptoms with Flomax. 5. Likely chronic kidney disease, stage III. Patient with creatinine likely at or near baseline. Has had slight uptrend with diuresis. We will continue to monitor closely. 6. Hyperlipidemia. Continue statin. 7. Gout. Continue home allopurinol. Monitor kidney function. 8. Deep vein thrombosis prophylaxis. Coumadin.
[2018-07-12] MEDS: ZOCOR PO SCH (20:33)
[2018-07-13] MEDS: LASIX IV SCH (02:59)
[2018-07-13 06:11] LABS: BASO# 0.01 X1000 (0.0-0.2); BASO% 0.2 % (0.0-0.8); EOS# 0.03 X1000 (0.0-0.7); EOS% 0.6 % (0.0-10.0); HEMATOCRIT 38.8 % (42.0-52.0); HEMOGLOBIN 12.6 g/dL (14.0-18.0); LYMPH# 1.15 X1000 (1.2-3.4); LYMPH% 22.3 % (20.5-51.1); MCH 23.9 PG (27-31); MCHC 32.5 g/dL (33-37); MCV 73.6 FL (81-99); MONO# 0.72 X1000 (0.11-0.59); MPV 10.4 FL (7.4-10.4); NEUT# 3.24 X1000 (1.4-6.5); NEUT% 62.9 % (42.2-75.2); PLT 206 X1000 (130-400); RBC 5.27 XMIL (4.7-6.1); RDW 18.5 % (11.5-14.5); WBC 5.15 X1000 (4.8-10.8)
[2018-07-13 06:45] LABS: CALCIUM 9.8 mg/dL (8.8-10.2); CREATININE 2.1 mg/dL (0.7-1.2); POTASSIUM 4.7 mmol/L (3.5-5.1)
[2018-07-13 07:20] LABS: LYMPHS 23 % (21-51); MONO 15 % (1-9); SEGS 62 % (42-75)
--- NOTE | 2018-07-13 08:25 | Diag Imaging Result Doc PS360 ---
CHEST-PORTABLE - 07/13/2018 INDICATION: dyspnea, chf exac COMPARISON: 07/09/2018 FINDINGS: Stable severe cardiomegaly. Stable pulmonary vascular congestion. No significant infiltrates or edema. No significant pleural effusions. IMPRESSION: No change from prior. Electronically signed by Kuldeep Arreaga 07/13/2018 8:22 AM
[2018-07-13] MEDS: ISORDIL PO SCH (09:00)
[2018-07-13] MEDS: APRESOLINE PO SCH (09:00)
[2018-07-13] MEDS: LANOXIN PO SCH (09:00)
[2018-07-13] MEDS: FLOMAX PO SCH (09:00)
[2018-07-13] MEDS: COREG PO SCH ×2 (09:01→20:49)
[2018-07-13] MEDS: ZYLOPRIM PO SCH (09:01)
--- NOTE | 2018-07-13 15:31 | PROGRESS NOTE ---
DATE: 07/13/2018 INTERVAL HISTORY: Patient with essentially no further dyspnea. Still with lower extremity swelling. No new complaints. No acute events overnight. REVIEW OF SYSTEMS: Twelve point review of systems negative, except as per interval history. LABS: White count 5.15, hemoglobin 12.6, hematocrit 38.8, platelets 206, BUN 48, creatinine 2.1. VITALS: Temperature 98.0 degrees, pulse 68, respirations 17, blood pressure 131/84, O2 saturation 97% on 4 L via nasal cannula. PHYSICAL EXAMINATION: General: No acute distress. Vitals: As above. HEENT: Normocephalic, atraumatic. Moist mucous membranes. No cervical adenopathy. Cardiovascular: Irregular rhythm with normal rate. No murmurs, rubs, or gallops. Abdomen: Soft, nontender, nondistended. Bowel sounds positive. Extremities: Peripheral pulses decreased, but intact. Left lower extremity remains heavily bandaged. Bandage clean, dry, intact. There is 2+ pitting edema of both lower extremities with some chronic venous stasis changes essentially unchanged from previous. Neurologic: Cranial nerves 2-12 grossly intact. No focal motor or sensory deficits. Psychiatric: Normal mood and affect. Awake, alert, oriented x3. Skin: No new rashes or lesions identified. ASSESSMENT AND PLAN: 1. Acute on chronic systolic congestive heart failure. No further dyspnea and lower extremity swelling improved from admission with aggressive diuresis. However, creatinine now trending up significantly, so we will hold further diuresis. This is likely as good as we will be able to get his lower extremity edema. Cardiology following. If creatinine improves off diuresis, they can likely adjust all medications and discharge tomorrow. 2. Acute kidney injury on chronic kidney disease III. Creatinine trending up significantly today with aggressive diuresis. Will hold diuretics and monitor. 3. Atrial fibrillation. Patient remains rate controlled. On Coumadin at home for anticoagulation. Coumadin being held currently because of supratherapeutic INR. Remains slightly elevated on last check and coming down very slowly. Repeat pending. When Coumadin is restarted, will likely restart at a very low dose, likely 1 mg per day. 4. Hypertension, reasonable control. Continue Coreg and isosorbide, Holding Lasix as above. 5. Benign prostatic hyperplasia. Improved symptoms with Flomax. 6. Hyperlipidemia. Continue statin. 7. Gout. Continue home allopurinol. Continue to monitor kidney function, but no need to adjust dose yet. 8. Deep vein thrombosis prophylaxis. Coumadin.
[2018-07-13] MEDS: NORCO-7.5 PO PRN (19:36)
[2018-07-13] MEDS: BIDIL PO SCH (20:48)
[2018-07-13] MEDS: ZOCOR PO SCH (20:48)
[2018-07-14 05:41] LABS: INR 2.21; PROTIME 26.2 Seconds (11.0-16.0)
[2018-07-14 05:51] LABS: BASO# 0.01 X1000 (0.0-0.2); BASO% 0.2 % (0.0-0.8); EOS# 0.04 X1000 (0.0-0.7); EOS% 0.7 % (0.0-10.0); HEMATOCRIT 37.3 % (42.0-52.0); LYMPH# 1.09 X1000 (1.2-3.4); LYMPH% 18.5 % (20.5-51.1); MCH 23.5 PG (27-31); MCHC 32.2 g/dL (33-37); MONO# 0.68 X1000 (0.11-0.59); MONO% 11.5 % (1.7-9.3); MPV 10.1 FL (7.4-10.4); NEUT# 4.08 X1000 (1.4-6.5); NEUT% 69.1 % (42.2-75.2); PLT 200 X1000 (130-400); RBC 5.11 XMIL (4.7-6.1); RDW 18.7 % (11.5-14.5)
[2018-07-14 06:08] LABS: CALCIUM 9.5 mg/dL (8.8-10.2); CREATININE 2.2 mg/dL (0.7-1.2); POTASSIUM 4.2 mmol/L (3.5-5.1)
[2018-07-14] MEDS: FLOMAX PO SCH (08:50)
[2018-07-14] MEDS: LANOXIN PO SCH (08:50)
[2018-07-14] MEDS: ZYLOPRIM PO SCH (08:51)
[2018-07-14] MEDS: COREG PO SCH ×2 (08:51→20:40)
[2018-07-14] MEDS: BIDIL PO SCH ×2 (08:51→20:40)
--- NOTE | 2018-07-14 13:12 | PROGRESS NOTE ---
DATE: 07/14/2018 INTERVAL HISTORY: No acute events overnight. Patient with slight increase in lower extremity edema, but no dyspnea. No other new complaints. REVIEW OF SYSTEMS: 12 point review of systems negative except as per interval history. LABORATORIES: WBC 5.5, hemoglobin 12, hematocrit 37.3, platelets 200,000. INR 2.2, sodium 135, BUN 58, creatinine 2.2, glucose 114. OBJECTIVE: Vitals: Temperature maximum 98.6, pulse 53, respiratory rate 19, blood pressure 110/76. O2 saturation 100% on 3 L by nasal cannula. General: No acute distress. Vitals as above. HEENT: Normocephalic. Atraumatic. Moist mucous membranes. No cervical adenopathy. Cardiovascular: Irregular rhythm, but normal rate. No murmurs, rubs or gallops. Abdomen: Soft, nontender, nondistended, bowel sounds positive. Extremities: Peripheral pulses decreased, but present. Left lower extremity bandaged. Bandage clean, dry, intact. 2 to 3+ pitting edema both lower extremities, with some chronic stasis changes slightly increased from previous. Neurologic: Cranial nerves 2-12 grossly intact. No focal motor or sensory deficits. Psychiatric: Normal mood and affect. Awake, alert, oriented x3. Skin: No new rashes or oral lesions seen. ASSESSMENT AND PLAN: 1. Acute on chronic systolic congestive heart failure. No further dyspnea. Lower extremity slightly worsened from yesterday, but still improved from admission. Currently holding further diuresis because of increase in creatinine. Cardiology following. 2. Acute kidney injury on chronic kidney disease 3. Creatinine trending up significantly yesterday with aggressive diuresis. Holding diuretics. Creatinine today is essentially unchanged from previous. The patient urinating well with no obstructive symptoms. We will hold diuretics one additional day, but if creatinine does not improve tomorrow, then we will consult Nephrology. 3. Atrial fibrillation. Patient remains in atrial fibrillation, but rate controlled. On Coumadin at home for anticoagulation. Coumadin held on admission because of supratherapeutic INR. INR now therapeutic. We will restart Coumadin at a lower dose. 4. Hypertension. Reasonable control so far. Continue Coreg and isosorbide. Holding Lasix as above. 5. Benign prostatic hypertrophy, improved symptoms with starting Flomax several days ago. No further urinary frequency or hesitancy. 6. Hyperlipidemia. Continue statin. 7. Gout, continue home allopurinol. 8. DVT prophylaxis. Coumadin.
[2018-07-14] MEDS: NORCO-7.5 PO PRN (15:25)
[2018-07-14] MEDS: ZOCOR PO SCH (20:40)
[2018-07-14] MEDS ORDERED: COUMADIN PO SCH (21:00)
[2018-07-15 05:18] LABS: BASO# 0.02 X1000 (0.0-0.2); BASO% 0.3 % (0.0-0.8); EOS# 0.09 X1000 (0.0-0.7); EOS% 1.4 % (0.0-10.0); HEMOGLOBIN 12.4 g/dL (14.0-18.0); IMM GRAN# 0.02 X1000 (0.0-0.04); IMM GRAN% 0.3 % (0.0-0.5); LYMPH% 15.5 % (20.5-51.1); MCH 23.8 PG (27-31); MCHC 32.6 g/dL (33-37); MCV 73.1 FL (81-99); MONO# 0.91 X1000 (0.11-0.59); MONO% 14.1 % (1.7-9.3); MPV 10.6 FL (7.4-10.4); NEUT# 4.41 X1000 (1.4-6.5); NEUT% 68.4 % (42.2-75.2); PLT 217 X1000 (130-400); RDW 18.7 % (11.5-14.5); WBC 6.45 X1000 (4.8-10.8)
[2018-07-15 05:22] LABS: INR 1.81; PROTIME 22.4 Seconds (11.0-16.0)
[2018-07-15 05:47] LABS: POTASSIUM 4.3 mmol/L (3.5-5.1)
[2018-07-15 05:48] LABS: CALCIUM 9.5 mg/dL (8.8-10.2); CREATININE 2.3 mg/dL (0.7-1.2)
--- NOTE | 2018-07-15 09:27 | PROGRESS NOTE ---
DATE: 07/15/2018 INTERVAL HISTORY: No acute events overnight. Patient with lower extremity swelling when he does not have them raised, but edema fairly minimal and he is resting with them propped up. No dyspnea. Weaning oxygen down. No complaints. REVIEW OF SYSTEMS: Twelve-point review of systems negative except as per interval history. LABORATORY DATA: CBC stable. INR 1.8. Sodium 134, potassium 4.3, BUN 65, creatinine 2.3. OBJECTIVE: Vital Signs: T-max 98.6, pulse 71, respirations 17, blood pressure 111/78, O2 saturation 97% on 4 liters by nasal cannula. General: No acute distress. Vitals as above. HEENT: Normocephalic/atraumatic. Moist mucous membranes. Neck: No cervical adenopathy. Cardiovascular: Irregular rhythm and normal rate. No murmurs, rubs, or gallops. Abdomen: Soft, nontender, nondistended. Bowel sounds positive. Extremities: Peripheral pulses decreased, but intact. Left lower extremity bandaged. Bandages remain clean, dry, and intact. 2 to 3+ pitting edema to both lower extremities with some chronic venous stasis changes, essentially stable. Neurologic: Cranial nerves 2-12 grossly intact. No focal motor or sensory deficits. Psychiatric: Normal mood and affect. Awake, alert, and oriented x3. Skin: No rashes or lesions noted. ASSESSMENT AND PLAN: 1. Acute on chronic systolic congestive heart failure and severe pulmonary hypertension. No further dyspnea. Weaning oxygen off. Lower extremity edema still significant, but improved from admission. Still holding further diuresis because of acute kidney injury. Cardiology following. 2. Acute kidney injury on chronic kidney disease, stage 3. Creatinine trended up significantly with aggressive diuresis. Diuresis held for the last 2 days, but creatinine continuing to trend up. Will check urine studies and consult Nephrology. 3. Atrial fibrillation. The patient remains in atrial fibrillation with rate controlled. Hold Coumadin for anticoagulation. Coumadin held on admission because of supratherapeutic INR. Coumadin restarted at a lower dose last night. INR slightly subtherapeutic today. Will increase Coumadin slightly and monitor. 4. Hypertension. Reasonable control so far. Continue Coreg and isosorbide. 5. Benign prostatic hypertrophy. Symptoms improved since starting Flomax. 6. Hyperlipidemia. Continue statin. 7. Gout. Continue home allopurinol. 8. Deep venous thrombosis prophylaxis. Coumadin. [facility]
[2018-07-15] MEDS: BIDIL PO SCH (09:42)
[2018-07-15] MEDS: ZYLOPRIM PO SCH (09:42)
[2018-07-15] MEDS: FLOMAX PO SCH (09:42)
[2018-07-15] MEDS: COREG PO SCH ×2 (10:25→20:48)
[2018-07-15 10:40] LABS: URINE SOURCE VOIDED
[2018-07-15 10:43] LABS: BILIRUBIN URINE NEGATIVE (NEGATIVE); BLOOD URINE NEGATIVE (NEGATIVE); COLOR YELLOW; GLUCOSE URINE NEGATIVE (NEGATIVE); KETONE URINE NEGATIVE (NEGATIVE); LEUKOCYTES URINE NEGATIVE (NEGATIVE); NITRITE URINE NEGATIVE (NEGATIVE); PH URINE 5.5; PROTEIN URINE TRACE mg/dL (NEGATIVE); TURBIDITY URINE CLEAR (CLEAR); UR EPITHELIAL CELLS <10 /HPF (<10); URINE BACTERIA NEGATIVE /HPF; URINE RBC <10 /HPF (<10); URINE WBC <10 /HPF (<10); UROBILINOGEN URINE NORMAL (NORMAL)
--- NOTE | 2018-07-15 10:51 | NEPHROLOGY CONSULTATION ---
DATE: 07/15/2018 REASON FOR ADMISSION: Acute on chronic congestive heart failure with fluid overload. REASON FOR CONSULTATION: Acute kidney injury. CONSULTING PHYSICIAN: Godwin Garcia MD HISTORY OF PRESENT ILLNESS: This is a 53-year-old gentleman, who came into the hospital secondary to shortness of breath, coughing and congestion. He was found to have hyponatremia, congestive heart failure and atrial fibrillation, rate controlled and he was admitted to the hospital. Initially his creatinine was 1.5 and 0.8 on admission. It stayed in that range until the and then it bumped to 2.1, today it is up to 2.3. During the course of the hospitalization, he has required both higher dose Lasix as well as metolazone to manage his fluid volume. It is noted that his BUN has risen steadily over the course of the hospitalization, initially at 28, now at 65. The patient today is sitting up on the side of the bed. He has had no complaints. He denies any nausea or vomiting. He still has some significant lower extremity swelling , but has no shortness of breath or chest pain today. PAST MEDICAL HISTORY: Atrial fibrillation, congestive heart failure, hypertension, high cholesterol, gout. PAST SURGICAL HISTORY: Noncontributory. ALLERGIES: No known drug allergies. HOME MEDICATIONS: 1. Carvedilol. 2. Warfarin. 3. Simvastatin. 4. Allopurinol. 5. Digoxin. 6. Hydrocodone. 7. Acetaminophen. 8. Furosemide. FAMILY HISTORY: Noncontributory. SOCIAL HISTORY: No current smoking. No ETOH or illicit drug use. REVIEW OF SYSTEMS: Shortness of breath. Lower extremity edema. Otherwise negative. PHYSICAL EXAMINATION: Vital Signs: Temperature 98.1 degrees, pulse 71, respiratory rate 17, blood pressure 119/83. Intake 420 mL, output 300 mL. General: This is a middle-aged gentleman sitting up on the side of the bed. He is awake and alert. He is in no acute distress. HEENT: HECTOR. Conjunctivae are pink. His oral mucosa is moist. His dentition is poor. Tongue is midline. Neck: Supple. He has some trace JVD. Cardiovascular: Reveals irregularly irregular rhythm with a controlled rate. Abdomen: Distended, but soft. He has positive bowel sounds. : He is voiding. He has dark yellow urine in the urinal at the bedside. Extremities: He has 2+ edema. The left lower extremity has a dressing noted from the foot up to about mid calf, the right lower extremity with 2 to 3+ edema. He has some old wounds that appear to be previous ulcers. Neurologic: Grossly nonfocal. Integumentary: Warm and dry otherwise. LABORATORY DATA: WBC of 6.4, hemoglobin 12.4. Sodium 132, potassium 4.3, CO2 31, creatinine 2.3. BUN 65. IMAGING: He did have an abdominal ultrasound when he came into the hospital. There were no renal issues noted. Positive for ascites. Last chest x-ray indicated severe cardiomegaly with stable pulmonary congestion. No pleural effusion on 07/13. ASSESSMENT/PLAN: Acute kidney injury in the setting of aggressive diuresis secondary to his congestive heart failure. He has elevated BUN noted. We will go ahead and order urine studies today, along with a urine urea. His diuretics have been held for the last perhaps two days secondary to his rising creatinine. The patient does not have any indications for intervention other than medical at this time. We agree with the current treatment plan of a diuresis holiday. Once we have his urine studies back, we will have a clearer picture if he can manage with further diuresis or if this is just simply decreased cardiac output issues secondary to his congestive heart failure. Note Cardiology on board. Consider dobutamine. Dictated by HOA Millan for Sky Mahan MD Face to face encounter, data reviewed, discussed with Sandra Castillo on 07/15/18. I agree with the above assessment and plan of care. cc: Sky Mahan MD [facility]
[2018-07-15] MEDS: LANOXIN PO SCH (11:18)
[2018-07-15 11:48] LABS: UR CREAT RANDOM 98.7 mg/dL (14-26)
[2018-07-15] MEDS ORDERED: PRIMACOR 20 MG/D5W 100 ML 20 MG/100 ML IVPB IV SCH (17:00)
[2018-07-15] MEDS: LASIX IV SCH (17:12)
[2018-07-15] MEDS: PRIMACOR 20 MG/D5W 100 ML 20 MG/100 ML IVPB IV SCH ×2 (17:13→23:06)
--- NOTE | 2018-07-15 18:48 | ECHO REPORT ---
ORDER DATE: 07/15/2018 INDICATIONS: A 53-year-old male with congestive heart failure, limited study. M-MODE MEASUREMENTS: Were not carried out. SUMMARY OF 2-DIMENSIONAL IMAGIN. The left ventricular function appears to be moderately to severely impaired. Ejection fraction is probably in the order of 30-35%.(adequate evaluation is difficult due to limited acoustic windows and large RV). 2. The right ventricle is markedly dilated. It shows significant impaired function. 3. The right atrium is massively dilated. 4. The tricuspid valve shows moderately severe to severe degree of regurgitation. The velocity of the jet of tricuspid regurgitation is about 5 meters. 5. The inferior vena cava is markedly dilated, greater than 4 cm, probably as much as 5 cm. 6. The pulmonary systolic pressure is estimated to be 125 mmHg. 7. The pulmonary diastolic pressure is also estimated to be somewhere in the 30 to 40 mmHg range. 8. The aortic valve shows some thickening of the cusps. No stenosis noted. 9. The mitral valve opens normally. 10.The left atrium appears to be somewhat compressed by the markedly enlarged right atrium. 11.There is flattening of the anterior ventricular septum. 12.There is small pericardial effusion noted. SUMMARY: In summary, this limited echocardiographic study shows: 1. Left ventricular systolic function appears to be in the range of 30% to 35% with flattening of the septum. 2. The right ventricle is markedly dilated with significant impaired function. 3. There is massive dilatation of the right atrium. 4. Pulmonary systolic pressure is greater than 120 mmHg. 5. Pulmonary diastolic pressure appears to be in the order of 30 to 40 mmHg. 6. Marked dilatation of the inferior vena cava. Clinical correlation recommended. cc: MD Magnus Ribeiro MD [facility]onaldo
--- NOTE | 2018-07-15 19:11 | PROGRESS NOTE ---
DATE: 07/15/2018 SUBJECTIVE: The patient has some exertional shortness of breath but no shortness of breath at rest. There has been no chest pain. Lasix has been held the last couple of days because of elevated BUN and creatinine. Appetite has been good. OBJECTIVE: Blood pressure 118/91 with a heart rate of 71, oxygen saturation 98 to 100% on nasal cannula oxygen at 3 to 4 L/minute. Jugular venous distention is strikingly present consistent with elevated central venous pressure.Chest: Clear to auscultation. Cardiac Exam: Reveals a regular rate and rhythm without appreciable murmur. Extremities: Demonstrate mild to moderate pretibial edema. LABORATORY DATA: Includes a white blood cell count 6.45, hematocrit 38.0, hemoglobin 12.4, platelet count 217,000. Sodium 134, potassium 4.3, chloride 90, carbon dioxide 31, BUN 65, creatinine 2.3, glucose 100. Limited echocardiography demonstrates severely enlarged right ventricle and severely enlarged right atrium. Right ventricle is severely hypokinetic. Diastolic and systolic septal flattening demonstrated consistent with right ventricular pressure/volume overload. Inferior vena cava not well demonstrated. Left ventricle by comparison appears small compared to right ventricle with global hypokinesis and estimated left ejection fraction 30%. Tricuspid regurgitation is demonstrated with estimated systolic PA pressure 110 mmHg. Findings suggest decompensated severe right-sided heart failure. IMPRESSION: 1. Acute on chronic systolic heart failure which is biventricular but with severe right-sided congestive heart failure that is further decompensated. Elevated BUN and creatinine probably due to cardiorenal syndrome. Patient is markedly volume overloaded. 2. Severe nonischemic cardiomyopathy. 3. Obstructive sleep apnea. 4. Severe pulmonary hypertension. 5. Hypertension, longstanding 6. Hyperlipidemia. 7. Chronic atrial fibrillation. RECOMMENDATIONS: 1. Diurese. Will resume Lasix 120 mg IV q.12. 2. Add inotrope with Milrinone. 3. Increase hydralazine as tolerated. cc: Magnus Lopez MD
[2018-07-15] MEDS: ZOCOR PO SCH (20:48)
[2018-07-15] MEDS: NORCO-7.5 PO PRN (20:51)
[2018-07-15] MEDS ORDERED: COUMADIN PO SCH (21:00)
[2018-07-16] MEDS: PRIMACOR 20 MG/D5W 100 ML 20 MG/100 ML IVPB IV SCH ×3 (04:59→16:11)
[2018-07-16 05:27] LABS: INR 1.67; PROTIME 20.9 Seconds (11.0-16.0)
[2018-07-16] MEDS: LASIX IV SCH ×2 (05:37→16:11)
[2018-07-16 05:48] LABS: BASO# 0.01 X1000 (0.0-0.2); BASO% 0.2 % (0.0-0.8); EOS# 0.05 X1000 (0.0-0.7); EOS% 0.8 % (0.0-10.0); LYMPH# 0.86 X1000 (1.2-3.4); LYMPH% 13.9 % (20.5-51.1); MCH 23.5 PG (27-31); MCHC 32.4 g/dL (33-37); MCV 72.4 FL (81-99); MONO# 0.72 X1000 (0.11-0.59); MONO% 11.6 % (1.7-9.3); MPV 11.1 FL (7.4-10.4); NEUT# 4.56 X1000 (1.4-6.5); NEUT% 73.5 % (42.2-75.2); PLT 222 X1000 (130-400); RBC 5.11 XMIL (4.7-6.1); RDW 18.4 % (11.5-14.5)
[2018-07-16 06:00] LABS: ALBUMIN 4.1 g/dL (3.5-5.0); CREATININE 2.2 mg/dL (0.7-1.2); PHOSPHORUS 3.7 mg/dL (2.7-4.5); POTASSIUM 4.1 mmol/L (3.5-5.1)
[2018-07-16] MEDS: LANOXIN PO SCH (08:27)
[2018-07-16] MEDS: FLOMAX PO SCH (08:27)
[2018-07-16] MEDS: COREG PO SCH ×3 (08:27→20:43)
[2018-07-16] MEDS: BIDIL PO SCH ×3 (08:27→16:11)
[2018-07-16] MEDS: ZYLOPRIM PO SCH (08:27)
--- NOTE | 2018-07-16 13:51 | PROGRESS NOTE ---
DATE: 07/16/2018 INTERVAL HISTORY: Patient with no increased dyspnea, but still requiring 2-3 L via nasal cannula to maintain oxygenation. He is complaining of some slight increase in lower extremity edema. No other new complaints. No acute events overnight. REVIEW OF SYSTEMS: A 12 point review of systems negative except as per interval history. LABS: WBC 6.2, hemoglobin 12, hematocrit 37, platelets 222,000. INR 1.67. Sodium 133, potassium 4.1, chloride 87, bicarb 32, BUN 66, creatinine 2.2, glucose 119. Urinalysis unremarkable. Urine creatinine 98.7, urine sodium 11, urine urea 595. IMAGING: Repeat echocardiogram showing similar EF to previous, but EF 30%-35%. Significant right- sided dilation. Moderate to severe tricuspid regurgitation. Markedly elevated pulmonary pressures at 125. OBJECTIVE: VITAL SIGNS: T-max 98.6 degrees Fahrenheit, pulse 61, respirations 18, blood pressure 104/78. O2 saturation 90% on 2 L via nasal cannula. GENERAL: No acute distress. Vitals as above. HEENT: Normocephalic and atraumatic. Moist mucous membranes. No cervical adenopathy. PULMONARY: Slightly decreased air entry throughout but otherwise clear to auscultation. CARDIOVASCULAR: Irregular rhythm. Normal rate. No murmur, rub or gallop. ABDOMEN: Soft, nontender, nondistended. Bowel sounds positive. EXTREMITIES: Peripheral pulses decreased but present. Left lower extremity bandaged. Slight increase in 2-3+ pitting edema in bilateral lower extremities. Chronic venous stasis changes stable. NEUROLOGIC: Cranial nerves II-XII are grossly intact. No focal motor sensory deficits. PSYCHIATRIC: Normal mood and affect. Awake, alert and oriented x3. SKIN: No new rashes or lesions noted. ASSESSMENT AND PLAN: 1. Acute on chronic systolic congestive heart failure and severe pulmonary hypertension. No further dyspnea. Still requiring some oxygen although less than on admission. Some increase in lower extremity edema off the diuretics. Cardiology increasing diuresis. We will monitor. 2. Acute kidney injury on chronic kidney disease stage III. Creatinine trended up significant with aggressive diuresis initially. Diuresis held for 2 to 3 days but little to no improvement in creatinine. Nephrology consulted. 3. Atrial fibrillation. Patient remains in atrial fibrillation with rate controlled. Coumadin helped initially because of supratherapeutic INR. We will restart her at a lower dose, but INR remains supratherapeutic and trending down. We will further increase Coumadin and monitor. 4. Hypertension, reasonable control so far. Continue Coreg and isosorbide. 5. Benign prostatic hypertrophy. Continue Flomax. 6. Hyperlipidemia. Continue Allopurinol. 7. Deep venous thrombosis prophylaxis. Coumadin.
--- NOTE | 2018-07-16 14:33 | PROGRESS NOTE ---
DATE: 07/16/2018 SUBJECTIVE: Patient continues without chest discomfort or dyspnea on supplemental oxygen per nasal cannula. He does feel some sense of shortness of breath with limited activity. There has been no orthopnea. OBJECTIVE: Vital Signs: Blood pressure 104/78 with pulse of 61, oxygen saturation 90% on nasal cannula oxygen. Neck: Jugular venous distention remains evident with estimated central venous pressure probably greater than 15 cm. Chest: Clear to auscultation. Cardiac exam: Reveals a irregular rate and rhythm without appreciable murmur or gallop. Extremities: Demonstrate mild to moderate pretibial edema. LABORATORY DATA: Includes a white blood cell count 6.2, hematocrit 37.0, hemoglobin 12.0, platelet count 222,000. Pro time 20.9, INR 1.7. Sodium 133, potassium 4.1, chloride 87, carbon dioxide 32, BUN 66, creatinine 2.2, glucose 119. IMPRESSION: 1. Acute on chronic systolic heart failure is biventricular but with severe right-sided congestive heart failure is further decompensated. The patient has associated cardiorenal syndrome and remains markedly volume overloaded. 2. Severe nonischemic cardiomyopathy. 3. Obstructive sleep apnea. 4. Severe pulmonary hypertension. 5. Hypertension, longstanding 6. Hyperlipidemia. 7. Chronic atrial fibrillation. RECOMMENDATIONS: 1. Continue Milrinone intravenously as inotrope. 2. Continue to diurese with intravenous Lasix. 3. Continue hydralazine/isosorbide. May consider ARB once patient is compensated from a standpoint of congestive heart failure. cc: Magnus Lopez MD
--- NOTE | 2018-07-16 14:41 | NEPHROLOGY PROGRESS NOTE ---
DATE: 07/16/2018 TIME SEEN: 7:50 a.m. SUBJECTIVE: The patient is sitting up on the side of the bed. He states that his breathing is somewhat better. OBJECTIVE: Vital Signs: Temperature 98.6 degrees, pulse 68, respiratory rate 18, blood pressure 108/75. Intake 390 mL, output 2.2 L. General: Middle-aged gentleman sitting up in bed, in no acute distress. HEENT: Normocephalic, atraumatic. HECTOR. Oral mucosa moist. Dentition poor. Neck: Supple with trace JVD. Cardiovascular: Regular/irregular rhythm with controlled rate. Pulmonary: Clear bilaterally with decreased breath sounds. Abdomen: Distended , soft. Positive bowel sounds. Genitourinary: Continues to void. Extremities: He has a compression dressing to the left lower extremity. He has a compression sock to the right lower extremity. He has 1+ edema noted through that. Integumentary: Skin is warm and dry otherwise. LABORATORY DATA: WBC 6.2, hemoglobin 12.0. Sodium 133, potassium 4.1, CO2 32, creatinine 2.2. ASSESSMENT AND PLAN: Acute kidney injury in the setting of aggressive diuresis and decreased cardiac output. The patient has been started on milrinone. He has severe cardiomegaly. He has had excellent urine output overnight after that initiation. Renal function has stabilized. We will continue current treatment plan. No changes. Dictated by HOA Millan for Sky Mahan MD Face to face encounter, data reviewed, discussed with Sandra Castillo on 07/16/17. I agree with the above assessment and plan of care. cc: Sky Mahan MD [facility]
[2018-07-16] MEDS: NORCO-7.5 PO PRN (17:13)
[2018-07-16] MEDS: ZOCOR PO SCH ×2 (19:50→20:43)
[2018-07-16] MEDS: COUMADIN PO SCH ×2 (19:50→20:43)
[2018-07-17] MEDS: PRIMACOR 20 MG/D5W 100 ML 20 MG/100 ML IVPB IV SCH ×6 (01:59→17:28)
[2018-07-17] MEDS: LASIX IV SCH ×2 (06:09→17:28)
[2018-07-17] MEDS: NORCO-7.5 PO PRN (06:14)
[2018-07-17 06:33] LABS: CALCIUM 9.1 mg/dL (8.8-10.2); CREATININE 2.4 mg/dL (0.7-1.2); POTASSIUM 4.2 mmol/L (3.5-5.1)
--- NOTE | 2018-07-17 07:27 | Diag Imaging Result Doc PS360 ---
EXAM: CHEST-PORTABLE INDICATION: ?CHF, cough TECHNIQUE: One view COMPARISON: 07/13/2018 FINDINGS: Pulmonary venous congestion is approximately stable. No new consolidation is identified. There is stable marked cardiomegaly. IMPRESSION: Stable chest. Electronically signed by Shun Hoffman 07/17/2018 7:25 AM
[2018-07-17] MEDS: LANOXIN PO SCH (08:18)
[2018-07-17] MEDS: BIDIL PO SCH ×3 (08:19→20:53)
[2018-07-17] MEDS: ZYLOPRIM PO SCH (08:19)
[2018-07-17] MEDS: COREG PO SCH ×3 (08:19→21:56)
[2018-07-17] MEDS: FLOMAX PO SCH (08:19)
--- NOTE | 2018-07-17 09:14 | PROGRESS NOTE ---
DATE: 07/17/2018 SUBJECTIVE: The patient continues without dyspnea. He is not utilizing his CPAP at night, which he left at home. He spends most of the day sitting up. There has been no orthopnea nor chest pain. OBJECTIVE: Vital Signs: Blood pressure 102/76, heart rate 65, oxygen saturation 95% on nasal cannula oxygen. Neck: Marked jugular venous distention is demonstrated consistent with markedly elevated central venous pressure. Chest: Clear to auscultation bilaterally. Cardiac: Exam reveals an irregular rate and rhythm without appreciable murmur or gallop. Extremities: Patient demonstrates moderate pretibial edema. LABORATORY DATA: Sodium 134, potassium 4.2, chloride 86, carbon dioxide 31, BUN 81, creatinine 2.4, glucose 115. IMPRESSION: 1. Acute on chronic systolic heart failure which is biventricular but predominantly severe right- sided congestive heart failure, which is further decompensated. The patient has associated cardiorenal syndrome and remains markedly volume-overloaded. Efforts to diurese thus far have met with very limited success. 2. Severe nonischemic cardiomyopathy. 3. Chronic atrial fibrillation. 4. Obstructive sleep apnea. 5. Severe pulmonary hypertension. 6. Hypertension. 7. Hyperlipidemia. RECOMMENDATIONS: 1. Increase milrinone to try to bolster right heart performance. 2. Patient to bring in his CPAP. If unavailable, will try and provide BiPAP at night. 3. Continue efforts to diurese with intravenous Lasix. 4. Continue hydralazine and isosorbide. 5. Repeat liver profile. cc: Magnus Lopez MD
[2018-07-17 09:19] LABS: ALB/GLOB RATIO 1.1; DIRECT BILIRUBIN 0.8 mg/dL (0.00-0.20); TOTAL BILIRUBIN 2.25 mg/dL (0.20-1.00); TOTAL PROTEIN 7.7 g/dL (6.3-8.3)
--- NOTE | 2018-07-17 09:35 | NEPHROLOGY PROGRESS NOTE ---
DATE: 07/17/2018 SUBJECTIVE: Patient sitting up in bed. No complaints of pain. States he is sleepy. OBJECTIVE: Vital Signs: Temperature 98 degrees, pulse 73, respiratory rate 16 , blood pressure 100/63, intake 1 liter, output 950 mL. General: This is a middle-aged gentleman sitting up in bed. He is awake, but he is drowsy, drifts off to sleep during conversation. HEENT: Normocephalic, atraumatic. HECTOR. Oral mucosa moist. Neck: Supple. No JVD. Cardiovascular: Irregularly, irregular rhythm without murmur. Pulmonary: He is clear bilaterally. Abdomen: Distended, soft, positive bowel sounds. : Voiding. Extremities: Compression dressing left lower extremity, right lower extremity 1 to 2+ edema. Integumentary: Skin is warm and dry. LAB DATA: Sodium 132, potassium 4.2, CO2 31, creatinine 2.4, BUN 81. Chest x- ray was unchanged. ASSESSMENT AND PLAN: Acute kidney injury in the setting of acute on chronic systolic heart failure with further decompensated right-sided heart failure and cardiorenal syndrome and fluid volume overload. Patient remains on inotropic therapy with Milrinone. He has had adequate though disappointingly low urine output overnight. I did discuss with him the possibility of future renal replacement therapy if we are unable to manage his fluids from a medication standpoint. Will continue to monitor daily and continue current treatment plan. The patient does not have any absolute indications for intervention in the form of dialysis today. I discussed the case directly with Dr. Lopez. His primary problem is right- sided heart failure which may be poorly amenable to dialysis. Observe. rg Dictated by HOA Millan for Sky Mahan MD Face to face encounter, data reviewed, discussed with Sandra Castillo on 07/17/18. I agree with the above assessment and plan of care. rg cc: Sky Mahan MD [facility]
[2018-07-17 10:23] LABS: INR 1.79; PROTIME 22.1 Seconds (11.0-16.0)
[2018-07-17] MEDS: ZOCOR PO SCH (21:56)
[2018-07-17] MEDS: COUMADIN PO SCH (21:56)
[2018-07-18] MEDS: PRIMACOR 20 MG/D5W 100 ML 20 MG/100 ML IVPB IV SCH ×7 (00:17→23:13)
--- NOTE | 2018-07-18 01:13 | PROGRESS NOTE ---
DATE: 07/17/2018 INTERVAL HISTORY: The patient has stable lower extremity edema and dyspnea on exertion. No acute events overnight. No new complaints. REVIEW OF SYSTEMS: Twelve point review of systems negative except as per interval history. LABS: INR 1.79. Sodium 134, potassium 4.2, chloride 86, BUN 81, creatinine 2.4, glucose 115, total bilirubin 2.25. IMAGING: Chest x-ray with stable mild pulmonary venous congestion. VITAL SIGNS: Temperature 98.0, pulse 72, respirations 21, blood pressure 112/ 68, O2 saturation 94% on 3 L by nasal cannula. PHYSICAL EXAMINATION: General: No acute distress. Vitals: As above. HEENT: Normocephalic, atraumatic. Moist mucous membranes. No cervical adenopathy. Cardiovascular: Irregular rhythm, normal rate, no murmurs, rubs, or gallops. Pulmonary: Slightly decreased air entry throughout, remains largely clear to auscultation otherwise. Abdomen: Soft, nontender, and nondistended. Bowel sounds positive. Extremities: Peripheral pulses decreased but present. Left lower extremity is bandaged. Two to 3+ pitting edema in bilateral lower extremities and chronic venous stasis changes stable. Neurologic: Cranial nerves II-XII grossly intact. No focal motor or sensory deficits. Psychiatric: Normal mood and affect. Awake, alert, and oriented x3. Skin: No new rashes or lesions identified. ASSESSMENT AND PLAN: 1. Acute on chronic systolic congestive heart failure and severe pulmonary hypertension. No further dyspnea at rest. Still requiring some oxygen although this has improved slightly. Still with significant lower extremity edema. Cardiology following and has added milrinone and continues high-dose Lasix. Continue to monitor closely. 2. Acute kidney injury on chronic kidney disease 3, creatinine trending up. Favored to represent cardiorenal syndrome by Cardiology. Continue diuresis. Monitor closely. Nephrology also on board. 3. Atrial fibrillation. The patient remains in atrial fibrillation but rate controlled. Coumadin held initially because of supratherapeutic international normalized ration. Coumadin now back on board and international normalized ratio is trending towards normal. Continue to monitor closely. 4. Hypertension, reasonable control so far. Continue current medication. 5. Benign prostatic hypertrophy. Continue Flomax. 6. Hyperlipidemia. Continue allopurinol. 7. Deep vein thrombosis prophylaxis. Continue Coumadin.
[2018-07-18] MEDS ORDERED: LASIX IV SCH ×2 (05:00→16:15)
[2018-07-18] MEDS ORDERED: NS IV SCH (05:00)
[2018-07-18 05:28] LABS: INR 1.77; PROTIME 21.9 Seconds (11.0-16.0)
[2018-07-18 05:32] LABS: BASO# 0.01 X1000 (0.0-0.2); BASO% 0.1 % (0.0-0.8); EOS# 0.02 X1000 (0.0-0.7); EOS% 0.3 % (0.0-10.0); HEMATOCRIT 34.5 % (42.0-52.0); HEMOGLOBIN 11.4 g/dL (14.0-18.0); LYMPH# 0.81 X1000 (1.2-3.4); LYMPH% 10.3 % (20.5-51.1); MCH 23.6 PG (27-31); MCV 71.4 FL (81-99); MONO# 1.23 X1000 (0.11-0.59); MONO% 15.6 % (1.7-9.3); MPV 10.4 FL (7.4-10.4); NEUT# 5.83 X1000 (1.4-6.5); NEUT% 73.7 % (42.2-75.2); PLT 185 X1000 (130-400); RBC 4.83 XMIL (4.7-6.1); RDW 18.4 % (11.5-14.5)
[2018-07-18 06:03] LABS: CALCIUM 9.8 mg/dL (8.8-10.2); CREATININE 2.7 mg/dL (0.7-1.2); PHOSPHORUS 3.1 mg/dL (2.7-4.5); POTASSIUM 4.1 mmol/L (3.5-5.1)
[2018-07-18 06:54] LABS: EOS 1 % (1-10); LYMPHS 14 % (21-51); MONO 10 % (1-9); SEGS 75 % (42-75)
[2018-07-18] MEDS: LANOXIN PO SCH (08:23)
[2018-07-18] MEDS: COREG PO SCH (08:24)
[2018-07-18] MEDS: FLOMAX PO SCH (08:24)
[2018-07-18] MEDS: BIDIL PO SCH (08:24)
[2018-07-18] MEDS: ZYLOPRIM PO SCH (09:28)
[2018-07-18] MEDS ORDERED: LASIX 100 MG in NS 90 ML IV SCH (12:15)
--- NOTE | 2018-07-18 12:39 | PROGRESS NOTE ---
DATE: 07/18/2018 SUBJECTIVE: The patient feels still short winded. OBJECTIVE: Blood pressure 89/48, heart rate 76, respiratory rate 24, temperature 98. Per nursing, he has definitely decompensated since yesterday as far as he is breathing harder and he is having difficulty getting up and around. Cardiovascular: Regular rate and rhythm. Pulmonary: Rales at the bases. Abdomen soft, protuberant. Lower extremity edema at least 2+. LABORATORY DATA: White count 7, hemoglobin and hematocrit 11 and 34, platelets 185,000. INR is 1.7. Sodium 130. BUN and creatinine of 91 and 2.7. PROBLEM LIST: 1. Acute congestive heart failure exacerbation, systolic with pulmonary hypertension. We will continue diuresis but now he is developing hypotension which is not a very promising development. I am just going to switch him to a low-dose Lasix drip because he is not tolerating the high dose Lasix and then Cardiology can adjust accordingly. We will continue Milrinone. I am going to add some low-dose dopamine as well just because his blood pressure is low and we cannot really afford to give him any volume resuscitation. 2. Cjlcw-to-pijmlwb kidney disease with likely a cardiorenal-type syndrome. Nephrology is following. We will continue to follow. He is on diuretics. Continue to monitor closely. BUN is steadily increasing. Creatinine is also increasing. 3. Atrial fibrillation is rate controlled. He is subtherapeutic on his INR, so we will adjust dosing. 4. Benign prostatic hypertrophy. I am holding his Flomax because of the hypotension. DISPOSITION: Since he is developing hypotension, I think we need to move him to the ICU when we can get a bed, as we cannot control his blood pressure right now. Condition still critical. We will continue to monitor closely. cc: Sharath Howell MD
[2018-07-18] MEDS: DOPAMINE 800 MG/D5W 800 MG/500 ML IV.SOLN IV SCH (13:24)
[2018-07-18 14:46] LABS: ALLEN TEST YES; BE 10.4 mmoll (-3.0-3.0); BLOOD TYPE ARTERIAL; HCO3-(ACT) 32.8 mmoll (20.0-26.0); MODALITY CANNULA; O2(CT) 14.7 mL/dL (15.0-23.0); PO2(98.6) 54 mmHg (60-100); SAMPLE BLOOD; SAO2 91.8 % (95.0-100.0); THB 11.9 g/dL (11.5-17.4); pH(98.6) 7.45 (7.35-7.45)
[2018-07-18 14:47] LABS: PCO2(98.6) 52 mmHg (35-45)
[2018-07-18] MEDS ORDERED: ZAROXOLYN PO ONE (16:13)
[2018-07-18 16:35] LABS: URINE SOURCE CATH
[2018-07-18 16:39] LABS: BILIRUBIN URINE NEGATIVE (NEGATIVE); BLOOD URINE NEGATIVE (NEGATIVE); COLOR YELLOW; GLUCOSE URINE NEGATIVE (NEGATIVE); KETONE URINE NEGATIVE (NEGATIVE); LEUKOCYTES URINE NEGATIVE (NEGATIVE); NITRITE URINE NEGATIVE (NEGATIVE); PH URINE 5.5; PROTEIN URINE 30 mg/dL (NEGATIVE); SP GRAVITY URINE 1.013; TURBIDITY URINE CLEAR (CLEAR); UR EPITHELIAL CELLS <10 /HPF (<10); URINE BACTERIA NEGATIVE /HPF; URINE RBC <10 /HPF (<10); URINE WBC <10 /HPF (<10); UROBILINOGEN URINE 2 mg/dL (NORMAL)
[2018-07-18] MEDS: LASIX 160 MG in NS 25 ML IV SCH (17:13)
[2018-07-18] MEDS: COUMADIN PO SCH (21:52)
--- NOTE | 2018-07-19 03:14 | PROGRESS NOTE ---
DATE: 07/18/2018 SUBJECTIVE: Mr. Garza has demonstrated minimal diuresis with efforts thus far. He did not tolerated CPAP last night. He is somewhat groggy today, but responds to questions appropriately. There has been no chest pain. OBJECTIVE: Vital Signs: Blood pressure 89/48 to 101/60, heart rate 76 to 81 beats per minute, oxygen saturation 95% on nasal cannula oxygen. Neck: Jugular venous distention is significantly elevated, consistent with markedly elevated central venous pressure. Chest: Clear to auscultation. Cardiac: Reveals an irregular rate and rhythm, without appreciable murmur or gallop. Extremities: Demonstrates [id number] pretibial edema. LABORATORY DATA: Includes a white blood cell count of 7.9, hematocrit 34.5, hemoglobin 11.4, platelet count 185,000. Sodium 130, potassium 4.1, chloride 85, carbon dioxide 30, BUN 91, creatinine 2.7, glucose 113, digoxin 2.1. IMPRESSION: 1. [id number] systolic heart failure, which is biventricular, but predominantly severe right-sided congestive heart failure, which is further decompensated. The patient has not been able to establish much of a diuresis, despite efforts thus far. 2. Severe nonischemic cardiomyopathy. 3. Chronic atrial fibrillation. 4. Obstructive sleep apnea. Patient has poor tolerance of CPAP. 5. Severe pulmonary hypertension. 6. Hypertension. 7. Hyperlipidemia. RECOMMENDATIONS: 1. Further increase milrinone to try and bolster right heart performance. 2. Add metolazone x1 dose, and increase IV Lasix. 3. Move to intensive care unit. Initiate BiPAP, in effort to unload right ventricle. 4. Discontinue digoxin. cc: Magnus Lopez MD
[2018-07-19] MEDS: PRIMACOR 20 MG/D5W 100 ML 20 MG/100 ML IVPB IV SCH ×10 (03:20→23:27)
[2018-07-19] MEDS: LASIX 160 MG in NS 25 ML IV SCH ×2 (04:08→17:27)
[2018-07-19 05:53] LABS: HEMATOCRIT 34.7 % (42.0-52.0); HEMOGLOBIN 11.6 g/dL (14.0-18.0); IMM GRAN# 0.02 X1000 (0.0-0.04); IMM GRAN% 0.2 % (0.0-0.5); LYMPH# 0.61 X1000 (1.2-3.4); LYMPH% 5.7 % (20.5-51.1); MCH 23.8 PG (27-31); MCHC 33.4 g/dL (33-37); MCV 71.3 FL (81-99); MONO# 1.33 X1000 (0.11-0.59); MONO% 12.4 % (1.7-9.3); MPV 10.4 FL (7.4-10.4); NEUT# 8.75 X1000 (1.4-6.5); NEUT% 81.7 % (42.2-75.2); PLT 197 X1000 (130-400); RBC 4.87 XMIL (4.7-6.1); RDW 18.2 % (11.5-14.5); WBC 10.71 X1000 (4.8-10.8)
--- NOTE | 2018-07-19 05:56 | NEPHROLOGY PROGRESS NOTE ---
DATE: 07/18/2018 TIME SEEN: 0655 a.m. SUBJECTIVE: Patient resting in bed. He arouses to verbal and tactile stimuli. He does not appear in distress. OBJECTIVE: Vital Signs: Temperature 98 degrees, pulse 86, respiratory rate 19 , blood pressure 119/66. Intake 664 mL, output 525 mL. General: This is a middle-aged gentleman resting in bed. He is sleeping. He does awaken. He is in no acute distress. HEENT: Normocephalic, atraumatic. HECTOR. Oral mucosa moist. Neck: Supple. Cardiovascular: Regular rate and rhythm. Pulmonary: He has some rales bilaterally. No wheeze. Abdomen: Distended, soft, positive bowel sounds. : Not inspected. He is voiding. Extremities: 2+ edema. Integumentary: Skin is warm and dry. LAB DATA: WBC of 7.9, hemoglobin 11.4. Sodium 130, potassium 4.1, CO2 30, creatinine 2.7, and BUN 91. ASSESSMENT AND PLAN: 1. Acute on chronic kidney disease with likely cardiorenal syndrome. The patient has had increased dosage of milrinone given to try to facilitate cardiac output. He has significant right-sided heart failure, which would make it difficult to have significant progress in a dialysis setting. We will continue to work with cardiology. It may be that we have to attempt dialysis for fluid mobility. But again with his current issues, fluid removal will be difficult. 2. Electrolytes, acid-base balance. These have been acceptable. 3. Blood pressure. Currently, he is in target. Dictated by HOA Millan for Sky Mahan MD Face to face encounter, data reviewed, discussed with Sandra Castillo on 07/18/18. I agree with the above assessment and plan of care. cc: Sky Mahan MD [facility]
[2018-07-19 06:03] LABS: INR 1.69; PROTIME 21.1 Seconds (11.0-16.0)
[2018-07-19 06:38] LABS: ALBUMIN 3.9 g/dL (3.5-5.0); CALCIUM 9.7 mg/dL (8.8-10.2); CREATININE 3.1 mg/dL (0.7-1.2); PHOSPHORUS 3.6 mg/dL (2.7-4.5); POTASSIUM 4.4 mmol/L (3.5-5.1)
--- NOTE | 2018-07-19 09:11 | PROGRESS NOTE ---
DATE: 07/19/2018 SUBJECTIVE: The patient denies shortness of breath or chest discomfort. Appetite is poor. He has demonstrated some hematuria. OBJECTIVE: Vital Signs: Blood pressure 107/68, heart rate 80, oxygen saturation 94%. Neck: Marked jugular distention remains, consistent with severely elevated central venous pressure. Cardiac: Irregular rate and rhythm without appreciable murmur or gallop. Abdomen: The abdomen is somewhat distended. Extremities: The extremities demonstrate moderate pretibial edema. LABORATORY DATA: White blood cell count 10.71, hematocrit 34.7, hemoglobin 11.6, platelet count 197,000. Sodium 127, potassium 4.4, chloride 82, carbon dioxide 30, BUN 98, creatinine 3.1, glucose 137. Albumin 3.9. IMPRESSION: 1. Acute on chronic systolic heart failure, which is biventricular but presently with severe right-sided congestive heart failure. Efforts thus far have been unable to establish much of a diuresis. 2. Severe nonischemic cardiomyopathy. 3. Chronic atrial fibrillation. 4. Obstructive sleep apnea. 5. Severe pulmonary hypertension. 6. Hypertension. 7. Hyperlipidemia. RECOMMENDATIONS: 1. Continue milrinone at current maximal dose. 2. Continue efforts to diurese with IV Lasix. 3. Nephrology has been consulted and is following patient as well. Any efforts on their part would be appreciated to help remove volume. cc: Magnus Lopez MD
[2018-07-19] MEDS ORDERED: SAMSCA PO ONE (10:15)
[2018-07-19] MEDS ORDERED: VITAMIN K SUBQ ONE (11:02)
--- NOTE | 2018-07-19 11:41 | PROGRESS NOTE ---
DATE: 07/19/2018 SUBJECTIVE: Patient has no major complaints, but he has definitely deteriorated over the last 24 hours and deteriorated over the last 24 hours before that. OBJECTIVE: Vital Signs: Blood pressure 91/64, that is on dopamine, heart rate 72, respiratory rate was 19 and temperature 97.3 degrees. He has had no fevers. I's and O's: Output has been minimal, but he has not really been able to tolerate much diuresis because his blood pressure has been intolerant. Urine output yesterday looks like 525, before that 950, and so far 310. Cardiovascular: Regular rate and rhythm. Pulmonary: Rales at the bases. GI: Soft. He is pretty distended. Extremities: 2+ pitting edema. LABORATORY DATA: White count 10, hemoglobin and hematocrit 11 and 34, platelets 197. INR 1.69, sodium 127, creatinine of 3.1. Dig level was actually a bit on the high side. PROBLEM LIST: 1. 2.1: Acute congestive heart failure exacerbation. Pulmonary hypertension. To some degree he has cardiogenic shock because he is hypotensive, but that may be also medication related. Cardiology is following aggressively. He is on high-dose Lasix. He is on Milrinone. We initiated dopamine yesterday just to support his blood pressure, and so far there is no associated tachyarrhythmia. It seems to be keeping his blood pressure. 2. Acute on chronic renal failure, cardiorenal syndrome. His current glomerular filtration rate establishes him at stage IV disease, and Dr. Mahan is going to pursue dialysis ultrafiltration. It will be technically difficult because of his hypotension and he is already in some degree of respiratory failure. 3. Atrial fibrillation is so far rate controlled. He is INR subtherapeutic, but we are going to hold his Coumadin for now because he needs a dialysis catheter. Will continue medications. Right now he is really not on any heart rate controlling medications, and he is on dopamine, so we will have to be very mindful of that. 4. Benign prostatic hyperplasia. We stopped his Flomax because of hypotension. 5. Hematuria which is likely related to coagulopathy plus he had a catheter placed. Urology has been consulted. I am going to initiate some vitamin K. He may need a 3-way Zaman. 6. Coagulopathy, again iatrogenic, but we will see how he is going. I am going to give him vitamin K and hold off on fresh frozen plasma because he is already so volume overloaded. DISPOSITION: 1. Pending his clinical status which is still marginal. 2. Hyponatremia. We will give him some Samsca to aid in getting his sodium up and also just his aquaresis as well. cc: Sharath Howell MD
[2018-07-19] MEDS ORDERED: MORPHINE IV PRN (12:16)
[2018-07-19] MEDS: DOPAMINE 800 MG/D5W 800 MG/500 ML IV.SOLN IV SCH (12:56)
[2018-07-19] MEDS: ATIVAN 20 MG in NS 190 ML IV SCH ×2 (13:07→16:12)
[2018-07-19] MEDS ORDERED: QUELICIN (DOSE) ONE (13:10)
[2018-07-19] MEDS ORDERED: DIPRIVAN 1% ONE (13:10)
[2018-07-19] MEDS: LEVOPHED 8 MG in D5 1/2 NS 250 ML IV SCH ×2 (13:30→23:46)
--- NOTE | 2018-07-19 13:30 | Diag Imaging Result Doc PS360 ---
EXAM: CHEST-PORTABLE - 07/19/2018 HISTORY: Intubation TECHNIQUE: Portable chest COMPARISON: 07/17/2018 FINDINGS: There has been interval insertion of an endotracheal tube. The tip of endotracheal tube is at the origin of the right mainstem bronchus. There is cardiomegaly similar to prior. There is vascular congestion/interstitial edema which has increased. There is no large pleural effusion identified. There is no pneumothorax identified. IMPRESSION: Tip of endotracheal tube at origin of right mainstem bronchus. The tube should be withdrawn about 4 cm for more optimal positioning. Cardiomegaly, with increased pulmonary edema/congestive heart compared to prior. This report was discussed with Lynda on 07/19/2018 at 1:27 PM and was readback. Electronically signed by Genaro Benito 07/19/2018 1:28 PM
[2018-07-19] MEDS ORDERED: HEPARIN IV PRN (13:38)
[2018-07-19] MEDS ORDERED: NS 2,000 ML MISC PRN (13:38)
[2018-07-19 14:01] LABS: ALLEN TEST YES; BE 9.2 mmoll (-3.0-3.0); BLOOD TYPE ARTERIAL; METHB 1.2 % (0.0-1.5); O2(CT) 15.5 mL/dL (15.0-23.0); O2HB 94.2 % (95.0-99.0); SAMPLE BLOOD; SAO2 97.6 % (95.0-100.0); SRATE 14 BPM; THB 11.7 g/dL (11.5-17.4); TVOL 600 mL; pH(98.6) 7.41 (7.35-7.45)
[2018-07-19 14:04] LABS: PCO2(98.6) 56 mmHg (35-45)
[2018-07-19 14:05] LABS: MODALITY VENTILATOR; PO2(98.6) 49 mmHg (60-100)
--- NOTE | 2018-07-19 14:05 | Diag Imaging Result Doc PS360 ---
EXAM: CHEST-PORTABLE - 07/19/2018 HISTORY: reposition of ET Tube TECHNIQUE: Portable chest COMPARISON: Prior portable chest of 07/20/2018 FINDINGS: The endotracheal tube is been withdrawn a bit since the prior exam. The tip of the endotracheal tube is now located in satisfactory position approximately 3 cm above the tramaine. There is stable cardiomegaly. There has been some apparent decrease in pulmonary edema. IMPRESSION: Tip of endotracheal tube in satisfactory position approximately 3 cm above the tramaine. Stable cardiomegaly. Some apparent decrease in pulmonary edema. Electronically signed by Genaro Benito 07/19/2018 2:03 PM
--- NOTE | 2018-07-19 15:02 | Diag Imaging Result Doc PS360 ---
US RENAL 2 (RETROPER) COMPLETE - 07/19/2018 INDICATION: JELENA, Hematuria, Aneuric TECHNIQUE: COMPARISON: 07/11/2018 FINDINGS: There is a small amount of ascites similar to prior. The kidneys remain normal. There is no hydronephrosis. Normal renal sizes. Urinary bladder is collapsed by a Zaman catheter. IMPRESSION: No change from prior. Normal exam of the urinary tract. Electronically signed by Kuldeep Arreaga 07/19/2018 2:59 PM
[2018-07-19] MEDS: FENTANYL 1,000 MICROGM in NS 80 ML IV SCH ×2 (15:24→20:11)
[2018-07-19] MEDS ORDERED: XYLOCAINE 2% VISCOUS ONE (17:18)
--- NOTE | 2018-07-19 19:02 | Diag Imaging Result Doc PS360 ---
EXAM: CHEST-PORTABLE INDICATION: confirm NGT placement TECHNIQUE: One view COMPARISON: 07/19/2018 FINDINGS: The newly placed NG tube projects below the diaphragm in the expected position. The newly placed Vas-Cath projecting over the lower SVC near the atrial caval junction in the expected position. The ET tube is stable. There is no evidence of pneumothorax. Otherwise, the chest is unchanged as compared to the earlier prior study. IMPRESSION: Interval placement of NG tube and Vas-Cath as described. Stable chest, otherwise. Electronically signed by Shun Hoffman 07/19/2018 6:59 PM
[2018-07-20] MEDS: FENTANYL 1,000 MICROGM in NS 80 ML IV SCH ×4 (00:26→21:07)
--- NOTE | 2018-07-20 01:23 | NEPHROLOGY PROGRESS NOTE ---
DATE: 07/19/2018 DATE OF EXAM: 07/19/2018. TIME OF EXAM: Approximately 8 a.m., and revisited several times through the morning. SUMMARY: He is less responsive, and I had to talk primarily to his today. He is currently on BiPAP. He has had essentially no improvement with BiPAP and milrinone and diuretics. As such, I discussed dialysis as our last clinical tool for volume management, given his constellation of pulmonary hypertension, right-sided heart failure, left-sided heart failure, and kidney injury. We discussed the complications related to access placement, dialysis, etc. Elective intubation prior to access placement is probably the safest course of action. I have discussed the case directly with Dr. Howell, Dr. Gray, and Dr. Frederick. His treatment today will be a bedside 3-1/2 hour treatment, with a goal of 2 to 3 L ultrafiltration as his blood pressure allows. cc: Sky Mahan MD
--- NOTE | 2018-07-20 03:24 | OPERATIVE NOTE ---
PROCEDURE DATE: 07/19/2018 PREOPERATIVE DIAGNOSIS: Acute renal failure requiring hemodialysis. POSTOPERATIVE DIAGNOSIS: Acute renal failure requiring hemodialysis. PRINCIPAL PROCEDURE: Ultrasound-guided placement of a right internal jugular Vas-Cath. SURGEON: Elena Gray MD. ANESTHESIA: Local in addition to IV sedation. ESTIMATED BLOOD LOSS: 10 mL. DRAINS: None. INDICATIONS: Mr. Rubén Garza is a 53-year-old black male in our ICU intubated in acute renal failure requiring hemodialysis and we were asked to place access. DESCRIPTION OF PROCEDURE: The patient was placed mostly in supine in his bed ICU 3. Right neck was prepped and draped within a sterile field. He was sedated. We used a local anesthetic at our site between the 2 heads of the sternocleidomastoid muscle. Under ultrasound guidance we identified the right internal jugular vein and an 18-gauge needle was placed into that vein under ultrasound guidance. The syringe was removed from the needle and we placed a guidewire through the needle into the right side of the heart. The needle was removed and over the guidewire we placed 2 dilators, and then a Trialysis catheter over the guidewire into the superior vena cava. The guidewire was removed. All 3 ports were functioning well and were flushed with saline. The catheter was secured to the skin with two 2-0 nylon stitches followed by a dressing. Plans are to get a portable chest x-ray for placement and have him dialyzed urgently. cc: Elena Gray MD
[2018-07-20] MEDS: LASIX 160 MG in NS 25 ML IV SCH (04:22)
--- NOTE | 2018-07-20 04:52 | CONSULTATION ---
DATE OF CONSULTATION: 07/19/2018 REQUESTING PROVIDER: Dr. Drake Howell MD. REASON FOR CONSULTATION: Respiratory failure. HISTORY OF PRESENT ILLNESS: This is a 53-year-old male with a medical history as listed below, including chronic atrial fibrillation, congestive heart failure , hypertension, hyperlipidemia, gout, obstructive sleep apnea, chronic kidney injury, aortic stenosis, etc.. He presented to the ER on 07/09/2018 with shortness of breath, coughing and congestion. He was found to have hyponatremia, congestive heart failure exacerbation and atrial fibrillation, and he has been admitted for further evaluation and management. During the course of the hospitalization, he developed acute renal failure with hematuria, ventricular tachycardia and acute hypoxemic hypercapnic respiratory failure. At the time of my examination, the patient is on BiPAP with the head of the bed raised maximally. He barely talks. His family is at the bedside at this time. and his reports that he has worsening shortness of breath. He does not have nausea, vomiting or chest pain. PAST MEDICAL HISTORY: 1. Chronic atrial fibrillation. 2. congestive heart failure: left ejection fraction less than 20% 3. hypertension 4. Hyperlipidemia 5. gout 6. obstructive sleep apnea 7. benign prostatic hyperplasia 8. severe nonischemic cardiomyopathy with left ejection fraction less than 20% 9. Chronic kidney injury Stage IV 10. Aortic stenosis 11. tendency for lower extremity edema and nonhealing ulcers. PAST SURGICAL HISTORY: None. SOCIAL HISTORY: The patient does not smoke. He drinks very infrequently an alcoholic beverage. He does not take any illicit drugs. FAMILY HISTORY: Positive for hypertension and congestive heart failure. REVIEW OF SYSTEMS: A 10-point review of systems was conducted and the pertinent is listed within the HPI, otherwise noncontributory. PHYSICAL EXAMINATION: Vital Signs: Temperature 97.4 degrees, blood pressure 91 /64, pulse 66, respiratory rate 21, oxygen saturation 91% with BiPAP, FiO2 60%, pressure 16/6. General: This is a middle-aged gentleman sitting on the bed. He is awake and alert. He is on BiPAP at this time due to acute respiratory distress. Family is at the bedside. HEENT: Atraumatic. Mucous membranes pink and moist. Respiratory: Diminished breathing sounds bibasilarly. Otherwise clear to auscultation. Cardiovascular: Regular rate and rhythm without murmur noted. Gastrointestinal: Normoactive bowel sounds. Soft, nontender, and distended. Extremities: Pedal edema 1+. No clubbing, no cyanosis. Neurologic: The patient is awake and alert at this time. IMAGING DATA: Chest x-ray reveals cardiomegaly with increased pulmonary edema plus congestive heart compared to prior. LABORATORY DATA: White blood cells 10.71, hemoglobin 11.6, hematocrit 34.7, platelet 197,000. Sodium 127, potassium 4.4, chloride 82, carbon dioxide 30, BUN 98, creatinine 3.1, glucose 137. ABG: pH 7.45, pCO2 of 52, PO2 of 54, HC03 of 32.8, base excess 10.4, and oxyhemoglobin 88.0. ASSESSMENT AND PLAN: This is a 53-year-old male with a medical history as listed above, including chronic atrial fibrillation, congestive heart failure , hypertension, hyperlipidemia, gout, obstructive sleep apnea, chronic kidney injury, aortic stenosis, etc.. He has been admitted since 07/09/2018 with congestive heart failure exacerbation, hyponatremia and atrial fibrillation. Later the patient developed acute kidney injury on chronic kidney disease, ventricular tachycardia, hematuria, acute hypoxemic hypercapnic respiratory failure, and severe pulmonary hypertension. 1. Acute congestive heart failure exacerbation, severe pulmonary hypertension with blood pressure around 90s at times. He is on milrinone. Agree to stop diuretics and start dialysis. Dr. Lopez, the cardiovascular rn is on board. 2. Acute on chronic renal failure with hematuria and likely cardiorenal syndrome. Agree to start dialysis. Dr. Mahan, the [employer] is on board. 3. Atrial fibrillation. Still trying to get the rate under control; Again Dr. Lopez is on board. 4. Acute hypoxemic hypercapnic respiratory failure. We are going to intubate the patient. We will do routine ABG, CXR, CBC and CMP. We will monitor closely and start weaning trails when appropriate. Dr. Frederick already explained the benefits and the risks of intubation to the patient's family at the bedside and they agree with intubation. 5. Continue GI and DVT prophylaxis. Thank you for the courtesy of this consult. Dictated by HOA Zafar for Sara Frederick MD cc: HOA Zafar MD [facility]
[2018-07-20 05:21] LABS: BASO# 0.01 X1000 (0.0-0.2); BASO% 0.1 % (0.0-0.8); EOS# 0.01 X1000 (0.0-0.7); EOS% 0.1 % (0.0-10.0); HEMATOCRIT 34.9 % (42.0-52.0); HEMOGLOBIN 11.6 g/dL (14.0-18.0); IMM GRAN# 0.03 X1000 (0.0-0.04); IMM GRAN% 0.3 % (0.0-0.5); LYMPH# 0.74 X1000 (1.2-3.4); LYMPH% 7.7 % (20.5-51.1); MCH 24.1 PG (27-31); MCHC 33.2 g/dL (33-37); MCV 72.4 FL (81-99); MONO# 1.06 X1000 (0.11-0.59); MONO% 11.1 % (1.7-9.3); MPV 10.4 FL (7.4-10.4); NEUT# 7.74 X1000 (1.4-6.5); NEUT% 80.7 % (42.2-75.2); PLT 184 X1000 (130-400); RBC 4.82 XMIL (4.7-6.1); RDW 18.7 % (11.5-14.5); WBC 9.59 X1000 (4.8-10.8)
--- NOTE | 2018-07-20 05:23 | CONSULTATION ---
DATE OF CONSULTATION: 07/19/2018 CHIEF COMPLAINT: Hematuria and decreased urinary output. HISTORY OF PRESENT ILLNESS: Mr. Garza is a 53-year-old male , with a past medical history of severe nonischemic cardiomyopathy, long-standing hypertension , atrial fibrillation, hyperlipidemia, gout, who initially presented to the emergency room with acute exacerbation of [id number] systolic heart failure. He was having dyspnea , chest pain, increased work of breathing, was evaluated by the hospitalist, as well as Cardiology, and subsequently was admitted for significant diuresis. Presented back on 2018. The patient has been monitored in the ICU, as well as required consultation with Nephrology , due to elevated creatinine, which was 1.5 on presentation, and remained relatively stable until 07/13/2018, where it had increased up to 2.1. It slowly increased over the past several days. However, today, it has increased up to 3.1. The patient has had decreased urinary output and had a catheter placed yesterday, and has had significant hematuria since then. The patient's catheter has been flushed multiple times, with minimal drainage from the catheter with evidence of clots. The patient has had worsening fluid overload status, and currently is on BiPAP, with the plans for intubation and placement of Vas- Cath to assist in dialysis. Urology was consulted regarding catheter and the patient's hematuria. Patient is on anticoagulation with warfarin for his atrial fibrillation, but appears to have not gotten it and several days. INR was 2.1 today. PAST MEDICAL HISTORY: 1. Severe nonischemic cardiomyopathy, with left ejection fraction less than 20%. 2. Longstanding hypertension. 3. Chronic atrial fibrillation. 4. Hyperlipidemia. 5. Gout. 6. Pulmonary Hypertension PAST SURGICAL HISTORY: denies prior abdominal or surgeries. ALLERGIES: No known drug allergies. HOME MEDICATIONS: 1. Carvedilol. 2. Warfarin. 3. Simvastatin. 4. Allopurinol. 5. Digoxin. 6. Hydrocodone. 7. Acetaminophen. 8. Furosemide. FAMILY HISTORY: Denies family history of BPH or prostate cancer. SOCIAL HISTORY: Previous smoker, but has since quit. Denies alcohol or illicit drug use. REVIEW OF SYSTEMS: A 12-point review of systems was attempted. However, the patient was on a BiPAP, and was unable to completely answer questions to complete review of systems. PHYSICAL EXAM: Vital Signs: Temperature 98.1 degrees, heart rate 93, blood pressure 94/56, oxygen saturation 97% on 100% oxygen flow through BiPAP. General: Moderate distress, with increased work of breathing, with significant belly breathing. The patient appears to be uncomfortable in bed. Cardiovascular: Significant lower extremity edema, with evidence of irregular heart rate. Pulmonary: Increased work of breathing, with audible wheezing and rales. HEENT: Normocephalic, atraumatic. Pupils equal, round, reactive to light. Abdominal: Abdominal distention, with no obvious tenderness to palpation. No palpable hepatosplenomegaly. Evidence of anasarca. : Uncircumcised phallus. Bilateral testicles, without masses or nodularity. Zaman catheter in place, with evidence of light reddish urine. There was some darker, bloody urine present within the catheter bag. No evidence of any clots present. No suprapubic tenderness. Neurologic: Moving all extremities. Musculoskeletal: No obvious musculoskeletal deformities. Skin: Some lower extremity ulcerations. LABS: White blood cell count 10.7, hemoglobin 11.6, hematocrit 34.7, platelets 197,000. Sodium 127, potassium 4.4, chloride 97, BUN 98, creatinine 3.1, glucose 137. UA from catheter placement showed 30 protein, negative glucose, negative ketones, negative for blood, negative nitrites, 2+ urobilinogen, negative for bacteria, and no epithelial cells. IMAGING: Renal ultrasound was performed today, which was reviewed, which showed the catheter in appropriate position, with urinary bladder collapse on the Zaman catheter. No evidence of any hydronephrosis. ASSESSMENT AND PLAN: Mr. Garza is a 53-year-old with nonischemic cardiomyopathy, hypertension, chronic atrial fibrillation, hyperlipidemia, gout, and significant lower extremity edema, who presents in consultation regarding hematuria and decreased urinary output. The patient was evaluated today with bloody urine output and concern for possible obstructed catheter. The patient had a 16-Omani Zaman catheter in place. I attempted to try to irrigate this, but no clots returned, and the patient had some spasms present. Subsequently removed his catheter, and tried to place a 22-Omani coude catheter. However, it did not pass like I felt was normal. I removed this, and downsized to a 20-Omani Coude catheter, which passed easily into the bladder, with return of a small amount of bloody urine. I then irrigated the catheter. The patient did have some bladder-type spasms due to the catheter. However, the catheter did drain the irrigant out, after flushing in. No obvious clots were seen. The patient subsequently had an ultrasound done afterwards, which showed no hydronephrosis, with a decompressed bladder, with the catheter appropriately positioned within the bladder. As the condition continues to decline, it appears that he may have cardiorenal syndrome, and I think that he is having decreased urinary output versus acute tubular necrosis of his kidneys, leading to his hematuria. No obvious clots were seen on recheck of his catheter later this afternoon. We will continue with his Zaamn catheter in place, to allow tamponade of any active bleeding within his urethra or prostate, though I think his hematuria is likely more upper tract in origin. The patient does take some anticoagulation, and does have a slightly elevated INR today, but has been off for several days per his [employer]. The patient was intubated due to his volume overload status after my evaluation and had a Vas-Cath placement for starting on dialysis. Urology will continue to follow and monitor his urinary output. If the patient' s catheter becomes obstructed or completely stops draining, I may consider placement of a three- way catheter for irrigation. However, I think once he starts on dialysis, he may have oliguria or anuric output through the catheter, which may be normal while on dialysis. We will continue to monitor. Please call with questions or concerns. cc: aBrt Melo MD MTDRonaldo
[2018-07-20] MEDS: LEVOPHED 8 MG in D5 1/2 NS 250 ML IV SCH ×4 (05:27→20:27)
[2018-07-20 05:32] LABS: INR 2.01; PROTIME 24.3 Seconds (11.0-16.0)
[2018-07-20 05:41] LABS: ALLEN TEST YES; BE 4.1 mmoll (-3.0-3.0); BLOOD TYPE ARTERIAL; HCO3-(ACT) 28.1 mmoll (20.0-26.0); METHB 1.1 % (0.0-1.5); O2(CT) 16.4 mL/dL (15.0-23.0); O2HB 95.2 % (95.0-99.0); PO2(98.6) 88 mmHg (60-100); SAMPLE BLOOD; SAO2 98.2 % (95.0-100.0); SRATE 12 BPM; THB 12.2 g/dL (11.5-17.4); TVOL 500 mL; pH(98.6) 7.34 (7.35-7.45)
[2018-07-20 05:42] LABS: MODALITY VENTILATOR
[2018-07-20 05:43] LABS: PCO2(98.6) 58 mmHg (35-45)
[2018-07-20 05:48] LABS: ALBUMIN 3.7 g/dL (3.5-5.0); CALCIUM 9.3 mg/dL (8.8-10.2); CREATININE 3.9 mg/dL (0.7-1.2); PHOSPHORUS 5.9 mg/dL (2.7-4.5); POTASSIUM 5.3 mmol/L (3.5-5.1)
[2018-07-20] MEDS: PRIMACOR 20 MG/D5W 100 ML 20 MG/100 ML IVPB IV SCH ×4 (05:50→17:22)
[2018-07-20 06:17] LABS: LYMPHS 5 % (21-51); MONO 9 % (1-9); POLYCHROM OCCASIONAL; SEGS 86 % (42-75)
--- NOTE | 2018-07-20 08:09 | Diag Imaging Result Doc PS360 ---
EXAM: CHEST-1 VIEW INDICATION: SOB TECHNIQUE: One view COMPARISON: 07/19/2018 FINDINGS: Support tubes and lines are in stable positions. Pulmonary venous congestion and interstitial edema are stable to marginally worse. No other new consolidations are identified. There is stable marked cardiomegaly. IMPRESSION: Stable to marginal worsening as described. Electronically signed by Shun Hoffman 07/20/2018 8:07 AM
[2018-07-20] MEDS ORDERED: VANCOMYCIN IV PER PHARMACY MISC SCH (08:30)
[2018-07-20] MEDS ORDERED: VANCOMYCIN 1 GM/NS 1 GM/250 ML IVPB IV ONE ×2 (09:00→17:00)
[2018-07-20] MEDS ORDERED: VANCOMYCIN 1 GM/NS 1 GM/250 ML IVPB IV SCH (09:30)
[2018-07-20] MEDS ORDERED: NS 2,000 ML MISC PRN (09:36)
--- NOTE | 2018-07-20 11:17 | PROGRESS NOTE ---
DATE: 07/20/2018 SUBJECTIVE: The patient had declining urinary output overnight which turned mostly to blood. The patient underwent intubation as well as placement of Vas-Cath for dialysis yesterday. He underwent SLED yesterday with 1300 cc of output per report. The patient remained somewhat stable with tachycardia and stable blood pressure, however, continues to have significant fluid overload, and creatinine has continued to increase today. The patient has been monitored by Nephrology, Cardiology, and the ICU team. OBJECTIVE: Vital signs: Heart rate is 111, blood pressure 113/79, oxygen saturation 96% with ET tube while on ventilator. General: Appears to be paralyzed, is not responsive during exam today. Respiratory: No audible wheezing; however, he does have some rales present. The patient is intubated on the ventilator. Cardiovascular: Tachycardia. Abdomen: Distended. No obvious palpable masses. : No suprapubic tenderness. Urethral catheter in place with mostly bloody output. DIAGNOSTIC DATA: White blood cell count is 9.56, hemoglobin 11.6, hematocrit 34.9, platelets 184. Sodium is 127, potassium 5.3, chloride 83, bicarb 29, BUN is 105, creatinine 3.9 , glucose 126, phosphorus 5.9. IMAGING: Renal ultrasound was reviewed from yesterday which showed no evidence of hydronephrosis. Bladder is decompressed around Zaman catheter balloon. ASSESSMENT AND PLAN: Mr. Garza is a 53 year old with nonischemic cardiomyopathy with both right and left heart failure, hypertension, chronic atrial fibrillation, hyperlipidemia, and gout, who presented in consultation regarding decreased urine output and hematuria. The patient's Zaman catheter was exchanged yesterday and flushed and seemed to irrigated appropriately. The patient has had decreased urinary output since then. I again irrigated his catheter today which irrigated easily with only a couple of small clots returning, and his urine was a light pink. I think the patient is currently in significant acute kidney injury with minimal urinary output which is probably also decreased due to him being on dialysis yesterday. His catheter does seem to be draining, even though it is mostly blood. I think it would be reasonable for the catheter to be irrigated twice a day to ensure that it flushes easily and that it does not clog with any clots, as this morning it seemed to flush extremely easily, and no evidence of large clots was seen and cleared rapidly. The patient's creatinine did elevate up to 3.9 today , likely correlating with acute on chronic kidney disease. He will continue to be monitored by Nephrology and Cardiology for optimization of his fluid overload status which is likely leading to a cardiorenal syndrome and oliguria. Please call with questions or concerns. cc: Bart Melo MD MTDD
[2018-07-20] MEDS ORDERED: VITAMIN K SUBQ ONE (11:58)
[2018-07-20] MEDS ORDERED: NEO-SYNEPHRINE 50 MG in NS 250 ML IV SCH (12:30)
[2018-07-20] MEDS: DOPAMINE 800 MG/D5W 800 MG/500 ML IV.SOLN IV SCH ×2 (12:37→21:06)
--- NOTE | 2018-07-20 13:30 | PROGRESS NOTE ---
DATE: 07/20/2018 SUBJECTIVE: The patient has no focal complaints. OBJECTIVE: Blood pressure is 89/67, heart rate 113, respiratory rate 20, temperature 99.3, saturation 94% on 100%. Cardiovascular: He has a hyperdynamic kind LV heave and pulse. Pulmonary: No rhonchi but rales. GI: Soft, nontender. Distended. Bowel sounds were positive. DIAGNOSTIC DATA: White count is 9, hemoglobin and hematocrit of 11 and 34, platelets 184. INR is up to 2. The pH is 7.34, pCO2 is 58, paO2 is 88. Sodium is 127, potassium 5.3 , BUN and creatinine of 105 and 3.9. PROBLEMS: 1. Acute hypoxic respiratory failure associated with congestive heart failure and possibly pneumonia. He is now intubated. He is still on 100% oxygen and keeping oxygen levels stable but really have not been able to wean. Pulmonary is following. I appreciate their input. 2. Acute systolic congestive heart failure exacerbation, some degree of early shock. He is on milrinone. I think we have stopped Lasix because now he is on dialysis, so I am not really sure how much the Lasix is going to do. We just stopped that. Cardiology is following. Still very marginal improvement, and he is on milrinone. 3. Acute on chronic renal failure, now with acute tubular necrosis. Likely he is oliguric. He has been started on SLED. Hopefully this will help with ultrafiltration and fluid removal. We will continue to monitor. I feel this is also possibly related to cardiorenal syndrome. 4. Atrial fibrillation. Not rate controlled. He is still kind of fast, but he is on 2 different pressors. I am going to try to stop dopamine. He responded pretty well to Levophed. Stop dopamine in favor of Mathew-Synephrine if that can keep his blood pressure up. 5. Coagulopathy. I am not sure at this point if there is some shock liver. We will check his enzymes and follow. We will re-administer vitamin K. 6. Benign prostatic hypertrophy with hematuria. Dr. Melo is following. I appreciate his input. At this point he is doing well. Hematuria has resolved. We will continue to follow. 7. Hyponatremia, persists. Hopefully we can get that regulated with dialysis. He did not really respond to Samsca whatsoever. DISPOSITION: He is still critically ill. I have updated his family, who I think is his , and we will continue to follow. He is certainly stable at this point, but he is still critically ill, and I explained that he still had a high risk for decompensation and a lot of comorbidities, unfortunately. Critical care time is 32 minutes for pressors. cc: Sharath Howell MD MTDD
--- NOTE | 2018-07-20 15:20 | CARDIOLOGY PROGRESS NOTE ---
DATE: 07/20/2018 SUBJECTIVE: Mr. Garza is currently on sedation, intubated. He is currently on SLED hemodialysis. PHYSICAL EXAMINATION: The patient is afebrile per documentation. His heart rates are predominately in the 110s. Blood pressure 89/67. General: He is ill appearing on the ventilator. Sedated. Extremities: Warm and well perfused. Cardiovascular: He is in a mildly tachycardic rhythm but sounds regular presently. He has bilateral lower extremity edema. Chest: Coarse breath sounds diffusely. Mechanical breath sounds are heard throughout all lung ralph. Abdomen: Soft and nontender. I did not hear any bowel sounds. PERTINENT DATA: He had a chest x-ray today demonstrating stable to marginal worsening, suggestive pulmonary venous congestion, interstitial edema. His laboratory data demonstrates a white count of 9.6, hematocrit 34, and platelet count 184. His INR is increasing at 2. His ABG was reviewed demonstrating an AA gradient of 553 which is markedly increased. His lactate is 2.3. Sodium 127, potassium 5.3, BUN 105, creatinine 3.9. These are all increased from yesterday. ASSESSMENT: Mr. Garza is a [id number] male with acute on chronic heart failure exacerbation mainly right sided presently. He has acute kidney injury, severe pulmonary hypertension, nonischemic cardiomyopathy and chronic atrial fibrillation. PLAN: We are going to continue him on pressors as well as inotropes. He has warm extremities. Unfortunately, his renal function has not improved, and his INR is increasing suggesting hepatic congestion. He is currently on hemodialysis. We are not presently affecting any diuresis with inotropes. Hopefully, we can get some fluid removed with hemodialysis and get him back on the Starling curve. No acute recommendations presently. cc: MD TASH Rosado
--- NOTE | 2018-07-20 16:15 | NEPHROLOGY PROGRESS NOTE ---
DATE: 07/20/2018 SUBJECTIVE: He is sedated on the ventilator. OBJECTIVE: Blood pressure is 89/67, heart rate 113, respiratory rate 20 and T-Max 99.3. Intake 2 L and output 1.9 L. General: He is sedated on the ventilator. Unresponsive. Skin: Warm and dry. HEENT: Conjunctivae are pink. Neck: Neck veins are distended. Heart: PMI is enlarged and displaced. There is a summation gallop present. Lungs: Equal breath sounds with crackles bilaterally. Abdomen: Distended but soft. Bowel sounds are present. Extremities: 3+ edema. No clubbing or cyanosis. IMPRESSION: Acute kidney injury secondary to cardiorenal syndrome, right-sided heart failure, pulmonary hypertension. PLAN: The plan today is for SLED using a 4 potassium bath, eight hour duration, and a goal of 4-6 liters of ultrafiltration. Vasopressor support as needed. cc: Sky Mahan MD
[2018-07-21] MEDS: PRIMACOR 20 MG/D5W 100 ML 20 MG/100 ML IVPB IV SCH ×4 (00:28→20:19)
[2018-07-21] MEDS: LEVOPHED 8 MG in D5 1/2 NS 250 ML IV SCH ×3 (00:29→10:18)
[2018-07-21] MEDS: DOPAMINE 800 MG/D5W 800 MG/500 ML IV.SOLN IV SCH ×2 (03:59→13:40)
[2018-07-21 04:54] LABS: INR 1.82; PROTIME 22.5 Seconds (11.0-16.0)
[2018-07-21 04:55] LABS: BASO# 0.01 X1000 (0.0-0.2); BASO% 0.1 % (0.0-0.8); EOS# 0.12 X1000 (0.0-0.7); EOS% 1.1 % (0.0-10.0); HEMATOCRIT 34.4 % (42.0-52.0); HEMOGLOBIN 11.8 g/dL (14.0-18.0); IMM GRAN# 0.05 X1000 (0.0-0.04); IMM GRAN% 0.5 % (0.0-0.5); LYMPH# 1.02 X1000 (1.2-3.4); LYMPH% 9.4 % (20.5-51.1); MCH 24.7 PG (27-31); MCHC 34.3 g/dL (33-37); MCV 72.1 FL (81-99); MONO# 1.59 X1000 (0.11-0.59); MONO% 14.7 % (1.7-9.3); NEUT# 8.05 X1000 (1.4-6.5); NEUT% 74.2 % (42.2-75.2); PLT 162 X1000 (130-400); RBC 4.77 XMIL (4.7-6.1); RDW 18.9 % (11.5-14.5); WBC 10.84 X1000 (4.8-10.8)
[2018-07-21 05:16] LABS: CALCIUM 8.8 mg/dL (8.8-10.2); CREATININE 3.2 mg/dL (0.7-1.2); POTASSIUM 4.9 mmol/L (3.5-5.1)
[2018-07-21 05:28] LABS: EOS 1 % (1-10); LYMPHS 10 % (21-51); MONO 13 % (1-9); NRBC 1 % (0-0); SEGS 76 % (42-75)
[2018-07-21 05:29] LABS: MICROCYTOSIS 3+
[2018-07-21 05:32] LABS: ALLEN TEST YES; BLOOD TYPE ARTERIAL; METHB 0.6 % (0.0-1.5); O2(CT) 16.2 mL/dL (15.0-23.0); O2HB 90.6 % (95.0-99.0); PCO2(98.6) 42 mmHg (35-45); PO2(98.6) 58 mmHg (60-100); SAMPLE BLOOD; SAO2 93.8 % (95.0-100.0); SRATE 20 BPM; THB 12.7 g/dL (11.5-17.4); TVOL 600 mL; pH(98.6) 7.37 (7.35-7.45)
[2018-07-21 05:34] LABS: MODALITY VENTILATOR
[2018-07-21 05:51] LABS: PHOSPHORUS 3.2 mg/dL (2.7-4.5)
--- NOTE | 2018-07-21 08:02 | Diag Imaging Result Doc PS360 ---
EXAM: CHEST-PORTABLE INDICATION: dyspnea TECHNIQUE: One view COMPARISON: 07/20/2018 FINDINGS: Support tubes and lines are in stable positions. Pulmonary venous congestion and interstitial edema are approximately stable. No new consolidation is identified. There is stable marked cardiomegaly. IMPRESSION: Essentially stable chest. Electronically signed by Shun Hoffman 07/21/2018 8:00 AM
--- NOTE | 2018-07-21 09:18 | PROGRESS NOTE ---
DATE: 07/21/2018 SUBJECTIVE: The patient remains in the ICU. The patient is intubated and on multiple pressors and cardiogenic medications. The patient underwent another trial of hemodialysis yesterday, with pulling off approximately 4 L of fluid. His urine output has also increased. He was up to 220 mL of urine output yesterday, whereas he only had approximately 110cc the day prior. His catheter seems to be draining well with light-yellow urine and a small amount of red sediment present. His renal function has also improved with a creatinine of 3.2. Hard to say if this is improved renal function versus the effects of dialysis. OBJECTIVE: Vital Signs: Heart rate 112, blood pressure 97/55, oxygen saturation 96% on assist respiration. General: Currently paralyzed, nonresponsive on exam today. Respiratory: No audible wheezing. However, he does have some rales present at the bases. The patient remains intubated and on the ventilator. Cardiovascular: Tachycardia with persistent lower extremity edema and evidence of anasarca. Abdomen: Distended. No hyperresonance. No obvious palpable masses. : No suprapubic tenderness. Urethral catheter in place with yellowish urine with a small amount of red sediment present, with approximately 50 to 70 mL in the chamber. LABORATORY DATA: White blood cell count 10.84, hemoglobin 11.8, hematocrit 34.4 , platelets 162,000. Sodium 128, potassium 4.9, chloride 91, bicarb 22, BUN 62, creatinine 3.2, glucose 176. Phosphorus 3.2. ASSESSMENT AND PLAN: Mr. Garza is a 53-year-old with nonischemic cardiomyopathy with both right and left heart failure, hypertension, chronic atrial fibrillation, hyperlipidemia, and gout, who presented in consultation for oliguria and hematuria. The patient's Zaman catheter was exchanged on Sunday after concern arose that his catheter was clogged, leading to the exchange of his catheter. However, since then, his catheter has been draining well. Yesterday, it was mostly blood. However, today it seems to have cleared, and he has had increased output from the catheter, still a small amount of sediment present that is red tinged. However, most of the drainage is relatively clear. I think that his kidneys have been making more urine, and he has been undergoing dialysis with pulling off approximately 4 L yesterday. His creatinine is slightly downtrending at 3.2. Whether this is related to the dialysis or improved renal function is difficult to say at this time, but with increased output of urine, would continued to monitor. His x-ray today seems to show stable marked cardiomegaly, and interstitial fluid seems to be relatively stable. The patient is being monitored by Nephrology and Cardiology to optimize his fluid overload status. Will continue to monitor from a urologic standpoint, but it seems like his catheter is more adequately draining. Can continue to try to flush his catheter twice a day or if the catheter becomes clogged and is not draining well. cc: Bart Melo MD MTDD
[2018-07-21 11:38] LABS: HEPATITIS PROFILE ACUTE SEE COMMENTS
[2018-07-21] MEDS: LEVOPHED 16 MG in D5 1/2 NS 250 ML IV SCH ×2 (13:32→22:35)
[2018-07-21] MEDS: NEO-SYNEPHRINE 100 MG in NS 250 ML IV SCH ×3 (13:40→22:35)
[2018-07-21] MEDS: FENTANYL 1,000 MICROGM in NS 80 ML IV SCH (13:41)
--- NOTE | 2018-07-21 14:15 | CARDIOLOGY PROGRESS NOTE ---
DATE: 07/21/2018 SUBJECTIVE: Mr. Garza remains on the ventilator, sedated. There is no response to verbal or physical stimuli. PHYSICAL EXAMINATION: Patient is afebrile. His heart rates seem to be in the 110s predominantly. His most recent blood pressure is 77/52 with most systolics in the 70s to 80s. General: No acute distress. Cardiovascular: He sounds to be in a regular rate and rhythm. He has somewhat distant heart sounds. He has anasarca noted with bilateral lower extremities being warm. His chest exam has mechanical breath sounds throughout, somewhat coarse. Abdomen: Soft, nontender. PERTINENT DATA: His chest x-ray shows pulmonary venous congestion and interstitial edema. His laboratory data shows a white count of 10.8, his hematocrit is 34, platelet count is 162,000. His INR is 1.8 which is slightly better. His sodium is 128, potassium 4.9, BUN 62, creatinine 3.2 which are improved. ASSESSMENT: Mr. Garza is a 53-year-old gentleman with pulmonary hypertension, cor pulmonale in respiratory failure and acute kidney injury. PLAN: We will try to double concentrate his pressors as even though he got 4 L of fluid removed yesterday, he seemed to get greater than 4 L of volume. Most of the volume seems to be coming from the dopamine and Levophed. Presently I do not have any acute recommendations other than those from a cardiovascular standpoint. His INR is somewhat improved and hopefully that is a sign of him overall getting better. His renal function is somewhat improved but I am not sure if that is his renal function or just a sign of dialysis yesterday. cc: Sae Bragg MD
[2018-07-21] MEDS ORDERED: TYLENOL PO PRN ×2 (15:48→17:37)
[2018-07-21] MEDS ORDERED: SODIUM CHLORIDE 0.9% INJ SCH (16:00)
[2018-07-21] MEDS: REGLAN IV SCH (16:33)
[2018-07-21] MEDS: PROTONIX IV SCH (16:33)
--- NOTE | 2018-07-21 17:25 | PROGRESS NOTE ---
DATE: 07/21/2018 SUBJECTIVE: Patient has no major complaints. He is intubated, sedated. OBJECTIVE: Blood pressure is 85/46, I think the last 1 was I was just in there was in the 90s, heart rate 110, respiratory rate 22, temperature was 99.7 degrees.Cardiovascular: Tachy. Pulmonary: Rhonchi and rales at the bases. GI: Soft, nontender, nondistended. Bowel sounds are positive. LABORATORY DATA: White count is 10, hemoglobin and hematocrit 11 and 34, platelets 162,000. INR is 1.82, pH 7.37, pCO2 44, PaO2 58 that is on 100%. Sodium is 128, BUN and creatinine are 62 and 3.2, that is after SLED yesterday. Pre-albumin of 9. PROBLEM LIST: 1. Acute respiratory failure due to pulmonary edema congestive heart failure. He is intubated. He has been weaned down to 90%. Pulmonary is following, a very kind of tenuous situation there. 2. Acute systolic congestive heart failure exacerbation with some degree of shock. He is on Milrinone. We have not really been able to diurese him, now he is on dialysis. He had SLED treatment yesterday and anticipate tomorrow. Cardiology is also following. We are trying to concentrate his pressors because right now he is on 3 different pressors and tried to get him off the dopamine yesterday but he is just not tolerating it from a blood pressure standpoint. 3. Acute on chronic renal failure, acute tubular necrosis. He is on SLED therapy, will continue to follow. 4. Atrial fibrillation which is not rate controlled. I am going to try to give him some periodic Lopressor and see. 5. Coagulopathy, really kind of unclear what the source. He has been off his blood thinners so I am not sure what is contributing to that. 6. Hyponatremia. We will continue to follow. He is on dialysis. 7. Disposition. He is still critically ill. He is still at risk for decompensation. I am not sure if he is going to survive this admission. I will need to discuss with all the consultants about what our expectations are at this point because he has full chemical support of his heart and blood pressure just maintain himself and is still not improving. We will continue to follow. 8. Fluid, electrolytes, nutrition. He is not tolerating tube feeds. Will reinitiate with some low dose Reglan and see how he does. cc: Sharath Howell MD
[2018-07-21] MEDS: TYLENOL PO PRN (17:45)
[2018-07-22] MEDS: DOPAMINE 800 MG/D5W 800 MG/500 ML IV.SOLN IV SCH ×3 (00:42→19:30)
[2018-07-22] MEDS: PRIMACOR 20 MG/D5W 100 ML 20 MG/100 ML IVPB IV SCH ×6 (02:02→18:34)
[2018-07-22] MEDS: REGLAN IV SCH ×2 (03:01→17:13)
[2018-07-22] MEDS: NEO-SYNEPHRINE 100 MG in NS 250 ML IV SCH ×4 (03:50→19:21)
[2018-07-22 04:59] LABS: ALLEN TEST YES; BE -3.3 mmoll (-3.0-3.0); BLOOD TYPE ARTERIAL; HCO3-(ACT) 22.3 mmoll (20.0-26.0); METHB 1.1 % (0.0-1.5); O2HB 96.3 % (95.0-99.0); PCO2(98.6) 40 mmHg (35-45); PO2(98.6) 118 mmHg (60-100); SAMPLE BLOOD; SAO2 99.9 % (95.0-100.0); SRATE 20 BPM; THB 12.4 g/dL (11.5-17.4); TVOL 600 mL; pH(98.6) 7.35 (7.35-7.45)
[2018-07-22 05:00] LABS: MODALITY VENTILATOR
[2018-07-22 05:01] LABS: INR 1.88
[2018-07-22 05:21] LABS: BASO# 0.02 X1000 (0.0-0.2); BASO% 0.2 % (0.0-0.8); EOS# 0.02 X1000 (0.0-0.7); EOS% 0.2 % (0.0-10.0); HEMOGLOBIN 11.8 g/dL (14.0-18.0); IMM GRAN# 0.07 X1000 (0.0-0.04); IMM GRAN% 0.6 % (0.0-0.5); LYMPH# 1.23 X1000 (1.2-3.4); LYMPH% 9.8 % (20.5-51.1); MCH 24.1 PG (27-31); MCHC 33.7 g/dL (33-37); MCV 71.6 FL (81-99); MONO# 1.57 X1000 (0.11-0.59); MONO% 12.5 % (1.7-9.3); NEUT# 9.63 X1000 (1.4-6.5); NEUT% 76.7 % (42.2-75.2); PLT 188 X1000 (130-400); RBC 4.89 XMIL (4.7-6.1); RDW 18.5 % (11.5-14.5); WBC 12.54 X1000 (4.8-10.8)
[2018-07-22 05:38] LABS: ALBUMIN 2.9 g/dL (3.5-5.0); MAGNESIUM 2.2 mg/dL (1.5-2.7); PHOSPHORUS 4.7 mg/dL (2.7-4.5)
[2018-07-22 05:41] LABS: CALCIUM 8.8 mg/dL (8.8-10.2); CREATININE 4.2 mg/dL (0.7-1.2); POTASSIUM 5.5 mmol/L (3.5-5.1)
[2018-07-22 05:53] LABS: LYMPHS 6 % (21-51); NRBC 1 % (0-0); SEGS 94 % (42-75)
[2018-07-22] MEDS ORDERED: LOVENOX SUBQ SCH (06:00)
[2018-07-22] MEDS: FENTANYL 1,000 MICROGM in NS 80 ML IV SCH (06:13)
[2018-07-22] MEDS: LEVOPHED 16 MG in D5 1/2 NS 250 ML IV SCH ×2 (06:14→17:25)
--- NOTE | 2018-07-22 06:42 | PROGRESS NOTE ---
DATE: 07/22/2018 SUBJECTIVE: Patient remains intubated in the ICU. He is on multiple inotropes and pressors with declining blood pressure. The patient made minimal urinary output yesterday measured at 87 mL for 24 hours which was down from the day prior. His urine looks more concentrated this morning without any evidence of clovis blood. Catheter seems to be draining. His renal function has also worsened today to 4.2. OBJECTIVE: Vital signs: Heart rate 107, blood pressure 80/57. Oxygen saturation 92%. General: Currently paralyzed, unresponsive on exam. Respiratory: Audible wheezing and rales. The patient remains intubated on the ventilator. Cardiovascular: Tachycardia with persistent lower extremity edema and evidence of anasarca. Abdomen: Is distended, soft with no evidence of hyper-resonance. No palpable masses. : No suprapubic tenderness. Urethral catheter in place with concentrated urine with approximately 20-30 mL in the chamber. LABS: White blood cell count 12.5, hemoglobin 11.8, hematocrit 35, platelets 180,000. Sodium 129, potassium 5.5, chloride 90, bicarb 20, BUN 76, creatinine 4.2, glucose 112. BNP greater than 35,000. Pre-albumin 9. ASSESSMENT/PLAN: Mr. Garza is a 53-year-old with nonischemic cardiomyopathy with both right and left heart failure, hypertension, chronic atrial fibrillation, hyperlipidemia, and gout who presents in consultation for oliguria and hematuria. The patient continues to have decreased urinary output. It looks like he did not undergo any dialysis yesterday. The patient really only made about 90 mL of urine output yesterday which was quite concentrated in the chamber this morning. His creatinine has also worsened up to 4.2 from 3.2 yesterday. His blood pressures remained low on inotropes and pressors. I think he has decreased urine output related to cardiorenal syndrome. The patient also has significant fluid buildup that appears to be difficult to completely remove. We will continue to be optimized with Nephrology and Cardiology and will continue with the urethral catheter in place. Seems to be draining well. No evidence of visible blood. Please call with questions or concerns. cc: MD TASH Murphy
[2018-07-22] MEDS ORDERED: NS 2,000 ML MISC PRN (06:46)
[2018-07-22] MEDS ORDERED: ALBUMIN 25% IV ONE (07:17)
--- NOTE | 2018-07-22 07:17 | Diag Imaging Result Doc PS360 ---
EXAM: CHEST-PORTABLE 07/22/2018 HISTORY: dyspnea TECHNIQUE: AP portable at 0512 COMMENT: There is an endotracheal tube with its tip at thoracic inlet and an NG tube with its tip below the diaphragm. There is a right internal jugular central venous catheter with its tip in the superior vena cava. There is cardiomegaly. There is alveolar and interstitial pulmonary edema. The pulmonary edema is definitely worse than on 07/21/2018. IMPRESSION: Worsening pulmonary edema. Electronically signed by Darien Purvis 07/22/2018 7:15 AM
[2018-07-22] MEDS: TYLENOL PO PRN (08:10)
--- NOTE | 2018-07-22 09:11 | Diag Imaging Result Doc PS360 ---
EXAM: CHEST-PORTABLE 07/22/2018 HISTORY: possible pneumothorax TECHNIQUE: AP portable at 0859 COMMENT: There is an endotracheal tube with its tip slightly below the thoracic inlet and an NG tube which passes below the diaphragm. There is a right internal jugular central venous catheter with its tip in the superior vena cava. There is cardiomegaly. There is patchy alveolar and interstitial pulmonary edema. There is a right pleural effusion. Compared to 07/22/2018 at 0512 there has been perceptible improvement in the pulmonary edema. IMPRESSION: Improved pulmonary edema. No evidence of pneumothorax. Electronically signed by Darien Purvis 07/22/2018 9:09 AM
--- NOTE | 2018-07-22 10:45 | NEPHROLOGY PROGRESS NOTE ---
DATE: 07/22/2018 TIME SEEN: 0710. SUBJECTIVE: Mr. Garza remains ventilator dependent, sedated. OBJECTIVE: His most recent vital signs: Temperature 100.7 degrees, blood pressure 77/52, heart rate 107, respirations are 14. He is on 90% ventilator support with 93% saturation, 3817 in, 214 out to Zaman catheter. Labs: Sodium 129, potassium 5.5, chloride 90, CO2 20, BUN 76, creatinine 4.2, glucose 112, anion gap is 19, calcium 8.8, phosphorus 4.7, albumin 2.9. White count 12.54, hemoglobin 11.8, hematocrit 35, platelet count 188,000. He has a pro-time of 23 , INR 1.8. BNP of greater than 35,000. ABGs: pH 7.35, CO2 40, pO2 118, bicarb 22.3 on 90% ventilatory support. General: This is a 53-year-old male. He is currently resting in bed. He appears chronically ill, no acute distress. HEENT: Normocephalic, atraumatic. He has dysconjugate pupils. Mucous membranes are dry. Neck: Supple. Positive JVD. Cardiovascular: He is regular rate and rhythm with a summation gallop. He has a large PMI. Abdomen: Soft, nontender. Hypo bowel sounds. Genitourinary: Minimal urine out to Zaman catheter, not inspected. Extremities: Continues with 2+ edema. ASSESSMENT AND PLAN: 1. Acute kidney injury secondary to cardiorenal syndrome with right-sided heart failure and pulmonary hypertension. The patient is currently on 3 pressor supports today , maxed out on his Mathew-Synephrine and Levophed. He does have dopamine support on with Milrinone. Unfortunately, his blood pressure is running low today. We are planning for sustained low efficiency dialysis. We will plan a 3K bath. He is to dialyze for 8 hours. We will attempt to pull 1 to 2 L of ultrafiltration with slow flow. We will plan also to give him 50 Gm of albumin today for blood pressure support. 2. Electrolytes. Patient has hyponatremia with hyperkalemia again with correction on dialysis. 3. Acid-base balance again with correction on dialysis. 4. Anemia. This is close to target. 5. Cardiomyopathy. Again, we will plan for sustained low efficiency dialysis and vasopressor x3 drugs. Dr. Mahan will talk with Dr. Lopez in regards with any assistance for further support. I would like to thank you for allowing us to follow with this patient. I reviewed the case with Dr. Lopez. He is receiving maximum therapy. rg Dictated by HOA Hanson for Sky Mahan MD Face to face encounter, data reviewed, discussed with Kathleen Adame on 07/22/18. I agree with the above assessment and plan of care. rg cc: HOA Hanson MD [facility]
[2018-07-22] MEDS: DUONEB (A & A) INH SCH ×3 (11:05→19:38)
[2018-07-22] MEDS ORDERED: KAYEXALATE NG ONE (15:27)
--- NOTE | 2018-07-22 15:39 | PROGRESS NOTE ---
DATE: 07/22/2018 SUBJECTIVE: The patient is currently intubated and sedated. Also, he is on pressors. He is critically ill. OBJECTIVE: Vital signs: Temperature 99.8 degrees, pulse 119, respirations 19, blood pressure 71/46, oxygen saturation 93%. HEENT: Atraumatic, normocephalic. He is anicteric. The patient does have an NG tube in place. Neck: No lymphadenopathy or thyromegaly. Cardiovascular: S1, S2. Respiratory: Good air entry bilaterally. Abdomen: Soft, full, nontender. No masses felt. Extremities: Peripheral edema. Central nervous system: The patient is currently sedated. Also, he is intubated. LABORATORY DATA: WBC 12.54, hematocrit 35.0, platelet count 198,000. INR 1.88. AB.35/40/118/99.9%. Sodium 129, potassium 5.5, chloride 92, bicarb 20, BUN 76, creatinine 4.2. DIAGNOSTIC STUDIES: X-ray of the chest shows evidence of improved pulmonary edema with no evidence of pneumothorax. ASSESSMENT AND PLAN: 1. Acute respiratory failure secondary to pulmonary edema/congestive heart failure. Continue ventilator support. Make changes per arterial blood gas. Pulmonary team is following. 2. Acute systolic heart failure. Cardiology following. 3. Probable cardiogenic shock. The patient is currently on multiple pressors. Cardiology following. 4. Acute on chronic kidney disease. The patient is on sustained low efficiency dialysis therapy. Nephrology is following. 5. Atrial fibrillation. Heart rate at this time is not controlled. Cardiology is following. 6. Hyperkalemia. Will give a dose of Kayexalate and follow up on potassium level. 7. Gastrointestinal prophylaxis. Proton pump inhibitor. 8. Deep vein thrombosis prophylaxis. Lovenox. cc: Ananth Prince MD
[2018-07-22] MEDS ORDERED: PITRESSIN 40 UNIT in NS 100 ML IV SCH (16:30)
[2018-07-22] MEDS ORDERED: VANCOMYCIN 1 GM/NS 1 GM/250 ML IVPB IV ONE (17:00)
[2018-07-22] MEDS: PROTONIX IV SCH (17:12)
[2018-07-22 22:07] VITALS: BP 60/38
[2018-07-23] MEDS: DUONEB (A & A) INH SCH (06:03)
--- NOTE | 2018-07-25 12:17 | Extremity Venous Study ---
PROCEDURE NAME: Venous U/S Bilateral Legs - 07/21/2018 PROCEDURE: Bilateral lower extremity venous duplex and color flow imaging study. EQUIPMENT: Sport Enduranceid E 9 ultrasound system with a 9 L-D transducer. DATE OF STUDY: 07/21/2018. PATIENT PROFILE: This is a 53-year-old male. EXTERN: [place]. INDICATIONS: Bilateral lower extremity pain and edema suggestive of deep venous thrombosis. FINDINGS: Right common femoral vein and its branches, deep and superficial femoral veins were satisfactorily imaged. They had flow through them and were compressible. Right popliteal vein and deep veins below the right knee were all compressible and had flow through them. The superficial veins of the right lower extremity were compressible throughout their length. The left common femoral vein and its branches, deep and superficial femoral veins were also satisfactorily imaged. They had flow through them and were compressible. Left popliteal vein and the deep veins below the left knee were all compressible and had flow through them. The superficial veins of the left lower extremity were compressible throughout their length. INTERPRETATION: No evidence of acute deep or superficial venous thrombosis of the bilateral lower extremities. cc: MD Sara Hope MD
--- NOTE | 2018-08-13 13:36 | DISCHARGE SUMMARY ---
ADMISSION DATE: 07/09/2018 DISCHARGE DATE: 07/22/2018 SUMMARY: Date of Expiration: 07/22/2018. PRINCIPAL DIAGNOSIS: Acute respiratory failure secondary to pulmonary edema as well as congestive heart failure. SECONDARY DIAGNOSES: 1. Acute systolic heart failure. Probable cardiogenic shock. 2. [id number] kidney disease. 3. Atrial fibrillation. 4. Hyperkalemia. HOSPITAL COURSE: Mr. Rubén Garza is a 54-year-old male who was admitted to the hospital because of shortness of breath, cough, congestion. He does have a history of congestive heart failure. 2D echo of the heart showed a global ejection fraction with left systolic global ejection fraction of the left ventricle around 30% to 35%. The patient was seen by the cardiology team. He was placed on diuretics. He also required Milrinone as inotrope. The patient was seen by the Nephrology team for renal failure and was started on hemodialysis. He did require multiple pressors for hypotension. However, while receiving care, the patient on 07/22/2018. He was DNR and, as such, ACLS protocol was not initiated. PROCEDURES DONE DURING THIS HOSPITAL STAY: 1. Echocardiogram 07/10/2018. 2. Abdominal ultrasound 07/11/2018. 3. Renal ultrasound 07/19/2018. 4. Extremity venous study 07/21/2018. CONSULTATIONS DONE DURING THIS HOSPITAL STAY: 1. Cardiology, Dr. Magnus Lopez. 2. Nephrology, Dr. Sky Mahan. 3. Surgery, Dr. Conrado Gray. Surgery for ultrasound-guided placement of a right internal jugular vas cath. cc: Ananth Prince MD
== END 2018-07-22 21:09 | disposition expired | DRG 291 ==
LOC: P.ED 12:09 → P.MEDSURG 19:48 → SUATTDRO 19:48 → 3S 07-10 21:39 → ICU 07-18 15:25 → DIRADM 07-23 00:50
PROVIDERS: ATTEND Internal Medicine
CPT/HCPCS: 31500; 71010; 71020; 71045; 71046; 71275; 76700; 76770; 80048; 80053; 80069; 80074; 80076; 80162; 81001; 82040; 82550; 82570; 82805; 82948; 83735; 83880; 83935; 84100; 84134; 84300; 84443; 84484; 84540; 85025; 85027; 85610; 85730; 87070; 87088; 87205; 93005; 93010; 93306; 93308; 93970; 94002; 94003; 94640; 94660; 94761; 94762; 96374; 96375; 99285; A9270; C9113; J0330; J1265; J1650; J1940; J2060; J2260; J2370; J2765; J3010; J3370; J3430; J7030; J7050; P9047; Q9967; S0164; XXXXX